=== PATIENT | male | born 1955 | race Caucasian/White ===

== ENCOUNTER → 2025-06-07 | Outpatient (CLI) | payer MEDICARE, SELFPAY ==
--- OUTSIDE RECORDS SUMMARY | 2025-06-07 07:42 | XMS RPT_ITS | CCD ---
Author Organization [facility] Care Team Providers Care Bin Packer Name Role Phone IVAN BROWN DO Primary Care Physician IVAN BROWN DO Attending Unavailable IVAN BROWN DO Primary Care Unavailable ERIC QIU Attending Un available IVAN BROWN DO Primary Care Unavailable NAVYA WOODARD, ERIC Frias Attending Un available IVAN BROWN DO Primary Care Unavailable JOSHUA NICK, DR BELTRAN Attending UnavailIVAN Bertrand DO Primary Care Unavailable TYLER GARCIA DO Attending Unavailable IVAN BROWN DO Primary Care Unavailable IVAN BROWN DO Attending Unavailable IVAN BROWN DO Primary Care Unavailable Unavailable Primary Care Provider UnavailCAS Monsivais Attending Unavailable PIOTR COLEMAN Referring Unavailable TIGIST LOPEZ Referring Unavailable Florence SENIOR STRATEGY MANAGER-Rosie Richmond Primary Care Provider [phone] May SENIOR STRATEGY MANAGERRosie Martin Referring Provider [phone] Karel NICK, Dr. Dykes Attending Provider [phone] FlorenceRosie Primary Care Unavailable Rosie Clark Referring Unavailable Donis Vinson Attending Unavailable Donis Vinson Attending Unavailable Donis Vinson Referring Unavailable Rosie Clark Primary Care Unavailable Medications Current Medications Medication Drug Class(es) Dates Sig (Normalized) Sig (Original) 8 hr acetaminophen 650 mg extended release oral tablet (1 source) Start: 05-31-2023 Tylenol 8 Hour 650 mg oral tablet, extended release Dose : 650 mg = 1 tab(s), Oral, TID, Generic acetaminophen 500-650mg dosing are fine to use. Do not take with alcohol within 24 hour period., # 100 tab(s), 0 Refill(s), Pharmacy: [facility]/pharmacy #[id number], 172, cm, 05/31/23 9:47:00 EDT, Height, kg, 05/31/23 9:47:00 EDT, Dosing Weight Start Date: 05/31/23 Status: Ordered apixaban 5 mg oral tablet (1 source) Factor Xa Inhibitor Start: 05-31-2025 take 1 tablet by mouth twice daily Apixaban (Eliquis) 5 mg tablet Active 5 mg PO TWICE A DAY 60 4 May 31, 2025 12:00am benoxinate hydrochloride 4 mg/ml / fluorescein sodium 3 mg/ml ophthalmic solution (1 source) Diagnostic Dye Start: 07-12-2024 End: 07-12-2024 fluorescein-benoxina te 0.3-0.4 % 1 Drop (FLURESS) cyclobenzaprine hydrochloride 5 mg oral tablet (1 source) Muscle Relaxant Start: 05-31-2023 End: 06-10-2023 cyclobenzaprine 5 mg oral tablet Dose : 5 mg = 1 tab(s), Oral, TID, NOTE!: Only if Skelaxin not covered by insurance!, X 10 day(s), # 30 tab(s), 0 Refill(s), 06/10/23 4:50:00 PM EDT, Pharmacy: [facility]/pharmacy #[id number], 172, cm, 05/31/23 9:47:00 EDT, Height, kg, 05/31/23 9:47:00 EDT, Dosing Weight Start Date: 05/31/23 Stop Date: 06/10/23 Status: Ordered diclofenac sodium 0.01 mg/mg topical gel (1 source) Nonsteroidal Anti-inflammatory Drug Start: 05-31-2023 End: 06-14-2023 diclofenac 1% topical gel Apply 1 jesse, Topical, QID, # 100 gram(s), 0 Refill(s), Pharmacy: [facility]/pharmacy #[id number], Gel, 172, cm, 05/31/23 9:47:00 EDT, Height, 100.6, kg, 05/31/23 9:47:00 EDT, Dosing Weight Start Date: 05/31/23 Stop Date: 06/14/23 Status: Ordered famotidine 40 mg oral tablet (1 source) Histamine-2 Receptor Antagonist Start: 05-20-2025 take 1 tablet by mouth once daily Famotidine 40 mg tablet Active 40 mg PO daily May 20, 2025 12:00am ibuprofen 200 mg oral tablet (1 source) Nonsteroidal Anti-inflammatory Drug Start: 05-31-2023 ibuprofen 200 mg oral tablet Dose : 400 mg = 2 tab(s), Oral, TID, Goal less than 10 days per month use, # 100 tab(s), 0 Refill(s), Pharmacy: [facility]/pharmacy #[id number], 172, cm, 05/31/23 9:47:00 EDT, Height, kg, 05/31/23 9:47:00 EDT, Dosing Weight Start Date: 05/31/23 Status: Ordered metaxalone 800 mg oral tablet (1 source) Start: 05-31-2023 End: 06-10-2023 Skelaxin 800 mg oral tablet Dose : 800 mg = 1 tab(s), Oral, TID, X 10 day(s), # 30 tab(s), 0 Refill(s), 06/10/23 4:50:00 PM EDT, Pharmacy: [facility]/pharmacy #[id number], 172, cm, 05/31/23 9:47:00 EDT, Height, kg, 05/31/23 9:47:00 EDT, Dosing Weight Start Date: 05/31/23 Stop Date: 06/10/23 Status: Ordered 24 hr metoprolol succinate 25 mg extended release oral tablet (1 source) beta-Adrenergic [place] Start: 05-20-2025 take 1 tablet by mouth once daily Metoprolol Succinate 25 mg tablet extended release 24 hr Active 25 mg PO daily May 20, 2025 12:00am Auwbh-0o-Gzl-Epa-Fish Oil-D3 (Fish Oil-Vit D3) 360 mg-1,200 mg -1,000 unit capsule (1 source) Start: 05-20-2025 Naglo-0n-Eqb-Epa-Fis h Oil-D3 (Fish Oil-Vit D3) 360 mg-1,200 mg -1,000 unit capsule Active 1 NMA PO THREE TIMES A DAY May 20, 2025 12:00am Omeprazole 20 mg capsule,delayed release(DR/EC) (1 source) Start: 05-31-2025 take 1 capsule by mouth once daily in the evening Omeprazole 20 mg capsule,delayed release(DR/EC) Active 20 mg PO EVERY EVENING May 31, 2025 12:00am phenylephrine hydrochloride 25 mg/ml ophthalmic solution (2 sources) alpha-1 Adrenergic Agonist Start: 07-12-2024 End: 07-12-2024 PHENYLephrine 2.5 % 1 Drop (AK-DILATE, POWER-SYNEPHRINE) Start: 07-12-2024 End: 07-12-2024 1 Drop, BOTH EYES, DIRECT ED, Starting on Leilani 07/12/24 at 1100, Until Leilani 07/12/24 at 2259, Administer for dilation PROTECT FROM LIGHT proparacaine hydrochloride 5 mg/ml ophthalmic solution (2 sources) Local Anesthetic Start: 07-12-2024 End: 07-12-2024 proparacaine 0.5 % 1 Drop (ALCAINE) Start: 07-12-2024 End: 07-12-2024 1 Drop, BOTH EYES, DIRECT ED, Starting on Leilani 07/12/24 at 1100, Until Leilani 07/12/24 at 2259, Administer for pneumo tonometry, tonopen tonometry, or pachymetry. In the event of a proparacaine shortage, administer tetracaine 0.5% ophthalmic drops 1 drop in both eyes as directed for pneumo tonometry, tonopen tonometry, or pachymetry tropicamide 10 mg/ml ophthalmic solution (2 sources) Anticholinergic Start: 07-12-2024 End: 07-12-2024 tropicamide 1 % 1 Drop (MYDRIACYL) Start: 07-12-2024 End: 07-12-2024 1 Drop, BOTH EYES, DIRECT ED, Starting on Leilani 07/12/24 at 1100, Until Leilani 07/12/24 at 2259, Administer for dilation Completed/Discontinued Medications Medication Drug Class(es) Dates Sig (Normalized) Sig (Original) aspirin 81 mg delayed release oral tablet (1 source) Platelet Aggregation Inhibitor, Nonsteroidal Anti-inflammatory Drug Start: 05-20-2025 End: 05-31-2025 take 1 tablet by mouth once daily Aspirin (Adult Aspirin Regimen) 81 mg tablet,delayed release (DR/EC) Discontinued 81 mg PO daily May 20, 2025 12:00am May 31, 2025 11:06am Problems Problem Classification Problem Date Documented Date Episodic/Chronic Calculus of urinary tract (1 source) Kidney stone; Translations: [Calculus of kidney] 05-20-2025 Episodic Cardiac dysrhythmias (6 sources) Atrial fibrillation; Translations: [Unspecified atrial fibrillation] Onset: 5 05-20-2025 Chronic Cardiac dysrhythmias (1 source) Bradycardia, unspecified; Translations: [Bradycardia, unspecified] Onset: 5 Episodic Cataract (1 source) Artificial lens present; Translations: [Presence of intraocular lens] 07-12-2024 Chronic Coronary atherosclerosis and other heart disease (1 source) Arteriosclerotic vascular disease; Translations: [Atherosclerotic heart disease of [place] coronary artery without angina pectoris] 05-20-2025 Chronic Esophageal disorders (1 source) Gastroesophageal reflux disease; Translations: [Gastro-esophageal reflux disease without esophagitis] 05-20-2025 Chronic Nonspecific chest pain (5 sources) Precordial pain; Translations: [Precordial pain] Onset: 5 03-29-2025 Episodic Other connective tissue disease (1 source) Pain in lower limb; Translations: [Pain in leg, unspecified] Onset: 3 Episodic Other connective tissue disease (2 sources) Pain in right thigh; Translations: [Pain in right thigh] Onset: 3 Episodic Other connective tissue disease (2 sources) Other specified soft tissue disorders; Translations: [Other specified soft tissue disorders] Onset: 3 Episodic Other eye disorders (1 source) Bullous keratopathy, bilateral; 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 keratopathy] 07-12-2024 Chronic Other eye disorders (1 source) Anterior dislocation of lens, left eye; Translations: [Anterior dislocation of lens] 07-12-2024 Chronic Other eye disorders (1 source) Hereditary corneal dystrophy, unspecified; Translations: [Other hereditary corneal dystrophies, bilateral] 07-12-2024 Episodic Other eye disorders (1 source) Monocular esotropia, left eye; Translations: [Monocular esotropia] 07-12-2024 Episodic Other screening for suspected conditions (not mental disorders or infectious disease) (4 sources) Ambulatory ECG abnormal; Translations: [Abnormal electrocardiogram [ECG] [EKG]] Onset: 5 05-20-2025 Episodic Unclassified (4 sources) Pain of knee region 06-15-2022 Results Test Name Value Interpretation Reference Range Facility Cardiology Visit Reporton Cardiology Visit Report [facility] [address] [place], [place] [address] OFFICE VISIT Date of Service: 05/31/25 MR#: [id number] Acct: [id number] Name: ALDA GARCIA Rep #: [id number] : 1955 Provider: Dr. Donis Vinson MD Age/Sex: 69/M [place] [facility] Status: Signed HPI HPI History of Present Illness Details: 69-year-old man with no previous cardiac history who presented to his primary care physician complaining of palpitations. This has been going on for a few months. He says that sometimes is associated with sharp chest discomfort. In February he underwent a stress test where he exercised to 6.2 metabolic equivalents with no EKG changes suggestive of ischemia the peak blood pressure was acceptable at 163/88 mmHg. He went on to have a 12-day Zio patch performed his minimum heart rate was 49 bpm and average heart rate of 72 bpm and a maximum heart rate of 221 bpm which was an episode of atrial fibrillation. He did have 94 beats of supraventricular tachycardia with the longest lasting 15 seconds at an average heart rate of 100 bpm. Isolated premature ventricular and atrial complexes were also noted. Since that time he was put on a beta-richmond with Toprol-XL 25 mg a day which he is tolerating. He still has some shortness of breath with activity. His lipid profile had demonstrated total cholesterol 202 HDL 49 LDL 129. His physical exam here is unremarkable his electrocardiogram demonstrates sinus bradycardia with a rate of 53 bpm and poor R wave progression. He is quite vague about the chest discomfort though he says that the palpitations generally wake him up at night. Intake Vital Signs 05/31/25 10:42 Height 5 ft 8 in Weight: 216 lb BMI 32.8 BP 105/78 Blood Pressure Location Lt brachial Position Sitting Respiration 16 Pulse 54 L Pulse Source Monitor Intake Visit Reasons: ABN HOLTER (FEBRUARY) Home Health Rn Required: No Accompanied by: Significant Other Is patient in pain?: No Allergies No Known Allergies Allergy (Unverified 05/31/25 10:40) Medications ???Medication ???Instructions ???Recorded ???Confirmed ???Type famotidine 40 mg tablet 40 mg PO QDAY 05/20/25 05/31/25 Hi story metoprolol succinate 25 mg 25 mg PO QDAY 05/20/25 05/31/25 Hi story tablet,extended release 24 hr omega-3s 360 cy-jcx-nzr-fish oil 1 cap PO TID 05/20/25 05/31/25 His tory 1,200 mg-D3 1,000 unit capsule (Fish Oil-Vit D3) apixaban 5 mg tablet (Eliquis) 5 mg PO BID #60 tabs 05/31/2511/24 Rx omeprazole 20 mg capsule,delayed 20 mg PO QPM 05/31/25 05/31/25 His tory release Have you fallen in the past year?: No PFSH Medical History PVC (premature ventricular contraction) Renal calculi ASCVD (arteriosclerotic cardiovascular disease) GERD (gastroesophageal reflux disease) Abnormal stress test Atrial fibrillation Abnormal Holter monitor finding Surgical History History of intraocular lens implant Family History Father Diabetes Mother Thyroid disorder Social History Smoking Status: Former smoker alcohol intake: never substance use type: does not use ROS Const Const: Positive for fatigue, weakness and difficulty sleeping; Negative for headache(s) or daytime sleepiness ENT ENT: Positive for dizziness; Negative for headache(s) or Nosebleed/epistaxis Cardio Chest Pain: Yes Frequency: other (mostly at night) Character: other (racing HR) Onset: at rest Location: left chest Duration: continuous Exacerbation: rest Recurrence: rest Palpitations: Yes feels like its: fast Edema: None Resp Respiratory: Positive for SOB with activity; Negative for SOB at rest, SOB orthopnea SOB lying down or Cough GI GI: Positive for nausea and heartburn; Negative vomiting Neuro Neuro: Positive for dizziness, near syncope and weakness; Negative for lightheadedness or headache(s) Endo Endo: Positive for fatigue Cardiology Exam Const Appearance: cooperative, healthy appearing, no acute distress, well developed and well groomed Nutritional Appearance: average body habitus and well nourished Orientation: alert, awake and oriented x3 Head Head: normal to inspection, normocephalic and atraumatic Ears: hearing grossly normal bilaterally and external ears normal Nose: external nose normal, nares normal, nasal mucous membranes and turbinates normal, septum normal and no nasal discharge Face and Sinus: face symmetric Mouth: oral mucosae normal, tongue normal, oropharynx normal and moist mucous membranes Teeth and gingiva: dentition normal Throat: posterior oropharynx normal, tons (more content not included)... Normal [facility] 04-29-2025 [facility] Telephone (CARMOB) DAVID GARCIA ([id number]) 1955 M Date Time Provider Department 04/29/25 ARTURO MORENO During your visit today, we recorded the following information about you: Arturo Moreno, RN 04/29/2025 3:20 PM Signed Referral from [facility] for bradycardia and pvc's. Please call to schedule. Thanks Brittany Dickerson 04/30/2025 9:31 AM Signed Scheduled and confirmed appt with patient Brittany Yue Howe 05/15/2025 9:19 AM Signed Patient called to cancel 11/05/[address] Rodrigues. Patient states he is scheduled with another rehabilitation services counselor sooner. Allergies As of Date: 04/29/2025 (Not on File) Date Reviewed: 07/12/2024 Reviewed by: Celia cMguire OA - Fully Assessed Reason for Visit: Appointment [[id number]] Cmt: Cancel Problem List As Of Date: 04/29/2025 (None) Encounter Status:Closed by BRITTANY DICKERSON on 04/30/25 [facility] EXERCISE STRESS ECG (WITHOUT IMAGING)on 03-29-2025 EXERCISE STRESS ECG (WITHOUT IMAGING) Stress Volunteer Recruiter Report: Exercise Stress ECG (without Imaging) [facility] Date of service: 03/29/2025 1:58:08 PM Supervising physician: John Rodrigues MD PATIENT: Name: MR. DAVID GARCIA Age: 69 years Gender: M The supervising physician was in the department and immediately available. Final Stress ECG Report: Exercise Stress ECG (without Imaging) [facility] Date of service: 03/29/2025 1:58:08 PM Ordering physician: TIGIST LOPEZ dermatology specialist: Jessica Leahy Interpreting physician: John Rodrigues MD Patient name: MR. DAVID GARCIA Age: 69 years Gender: M Height: 175.26 cm BSA: 2.20 m Weight: 99.79 kg BMI: 32.5 kg/m Indication: Precordial chest pain Stress ECG Conclusion: Conclusion: Normal with exception due to arrhythmia Stress ECG Summary: The patient's resting heart rate was 54 bpm and blood pressure was 142/76 mmHg. The patient exercised according to the Justin protocol. The estimated end-exercise MET level achieved using the FRIEND equation was 6.2, which is within the 10th to 25th percentile for age and sex. The estimated end-exercise MET level achieved using the previous ACSM equation was 7.0. The test was terminated due to general fatigue and the total exercise time was 6 minutes and 9 seconds. Other symptoms during the test included SOB. The maximum heart rate was 130 bpm, which is 85% of the predicted heart rate for age. This is an adequate heart rate response. Peak blood pressure was 163/88 mmHg. The double product achieved was [address]. Medications: Last Used OMEPRAZOLE Resting ECG: Sinus Bradycardia Symptoms at rest: No symptoms Exercise Protocol: Justin Stress Exercise Table: +-----+ +- -------+ +- --+---+---+----+ Stage Speed (MPH) Grade(%) Time (min) HR SYS KINGSLEY METS +-----+ +- -------+ +- --+---+---+----+ 1 1.7 10.0 3.0 111 140 80 4.2 +-----+ +- -------+ +- --+---+---+----+ 2 2.5 12.0 6.0 123 160 80 6.1 +-----+ +- -------+ +- --+---+---+----+ +-----+ +- --------+ + ---+---+---+----+ Speed (MPH) Grade (%) Time (min) HR SYS KINGSLEY METS +-----+ +- --------+ + ---+---+---+----+ Final 2.5 12.0 6.15 130 163 88 6.2 +-----+ +- --------+ + ---+---+---+----+ Recovery Table: +------+ + --------+ + --+---+---+----+ Stage Speed (MPH) Grade(%) Time (min) HR SYS KINGSLEY MET S +------+ + --------+ + --+---+---+----+ 1 1.5 0.0 0.3 93 158 80 2.1 +------+ + --------+ + --+---+---+----+ 2 0.0 0.0 3.0 77 163 88 1.0 +------+ + --------+ + --+---+---+----+ 3 0.0 0.0 4.0 77 158 85 1.0 +------+ + --------+ + --+---+---+----+ Stress Observations: Resting HR: 54 bpm Peak HR: 130 bpm (85% MPHR) Resting BP: 142 / 76 mmHg Peak BP: 163 / 88 mmHg Total exercise time: 6 minutes 9 seconds METS achieved: 6.2 Chronotropic response index (CRI): 0.77 Heart rate recovery (HRR): 53 bpm Rate Pressure Product (RPP): 91037 Stress Exercise Observations: Reason for test termination: general fatigue, Symptoms during test: Other symptoms during the test included SOB, Heart rate response: Adequate heart rate response, Blood pressure response: Normal BP response, ST segment and T wave changes: No ST changes, Yanes Treadmill Score: Normal Yanes Treadmill Score (>=5) and Arrhythmias: Unifocal PVCs and Isolated ventricular couplet(s) / triplet(s) with stress Comments: Frequent PVCs with ventricular bigeminy at peak stress Metabolic Exercise Data Variable: Observed value [Expected Range] HGI: 1.8 [>1.06 bpm/mmHg] IMPORTANT NOTE REGARDING ESTIMATED MET VALUES: Effective 08/17/2020, the reference equation for determining estimated MET values for [facility] stress tests changed. Comparison of test results before and after that date may show a change in estimated MET values for peak/max exercise despite a test duration that is similar in length. The validity of the new FRIEND equation for exercise METS is endorsed by the [place] [employer]. Peyton P, Marshall LA, Annette R, aKyden J, Serjio J. New Generalized Equation for Predicting Maximal Oxygen Uptake (from the Fitness Registry and the Importance of Exercise National Database). The [place] [employer] Journal of Cardiology. 2017;120(4):688-692) . Final CC [employer] Image : [id number] oDynamicsSISUID See Link below for Image Normal [facility] No Panel Informationon 03-29 Stress Volunteer Recruiter Report: Exercise Stress ECG (without Imaging) [facility] Date of service: 03/29/2025 1:58:08 PM Supervising physician: John Rodrigues MD PATIENT: Name: MR. DAVID GARCIA Age: 69 years Gender: M The supervising physician was in the department and immediately available. Final Stress ECG Report: Exercise Stress ECG (without Imaging) [facility] Date of service: 03/29/2025 1:58:08 PM Ordering physician: TIGIST LOPEZ dermatology specialist: Jessica Leahy Interpreting physician: John Rodrigues MD Patient name: MR. DAVID GARCIA Age: 69 years Gender: M Height: 175.26 cm BSA: 2.20 m Weight: 99.79 kg BMI: 32.5 kg/m Indication: Precordial chest pain Stress ECG Conclusion: Conclusion: Normal with exception due to arrhythmia Stress ECG Summary: The patient's resting heart rate was 54 bpm and blood pressure was 142/76 mmHg. The patient exercised according to the Justin protocol. The estimated end-exercise MET level achieved using the FRIEND equation was 6.2, which is within the 10th to 25th percentile for age and sex. The estimated end-exercise MET level achieved using the previous ACSM equation was 7.0. The test was terminated due to general fatigue and the total exercise time was 6 minutes and 9 seconds. Other symptoms during the test included SOB. The maximum heart rate was 130 bpm, which is 85% of the predicted heart rate for age. This is an adequate heart rate response. Peak blood pressure was 163/88 mmHg. The double product achieved was [address]. Medications: Last Used OMEPRAZOLE Resting ECG: Sinus Bradycardia Symptoms at rest: No symptoms Exercise Protocol: Jusitn Stress Exercise Table: +-----+ +- -------+ +- --+---+---+----+ Stage Speed (MPH) Grade(%) Time (min) HR SYS KINGSLEY METS +-----+ +- -------+ +- --+---+---+----+ 1 1.7 10.0 3.0 111 140 80 4.2 +-----+ +- -------+ +- --+---+---+----+ 2 2.5 12.0 6.0 123 160 80 6.1 +-----+ +- -------+ +- --+---+---+----+ +-----+ +- --------+ + ---+---+---+----+ Speed (MPH) Grade (%) Time (min) HR SYS KINGSLEY METS +-----+ +- --------+ + ---+---+---+----+ Final 2.5 12.0 6.15 130 163 88 6.2 +-----+ +- --------+ + ---+---+---+----+ Recovery Table: +------+ + --------+ + --+---+---+----+ Stage Speed (MPH) Grade(%) Time (min) HR SYS KINGSLEY MET S +------+ + --------+ + --+---+---+----+ 1 1.5 0.0 0.3 93 158 80 2.1 +------+ + --------+ + --+---+---+----+ 2 0.0 0.0 3.0 77 163 88 1.0 +------+ + --------+ + --+---+---+----+ 3 0.0 0.0 4.0 77 158 85 1.0 +------+ + --------+ + --+---+---+----+ Stress Observations: Resting HR: 54 bpm Peak HR: 130 bpm (85% MPHR) Resting BP: 142 / 76 mmHg Peak BP: 163 / 88 mmHg Total exercise time: 6 minutes 9 seconds METS achieved: 6.2 Chronotropic response index (CRI): 0.77 Heart rate recovery (HRR): 53 bpm Rate Pressure Product (RPP): 11658 Stress Exercise Observations: Reason for test termination: general fatigue, Symptoms during test: Other symptoms during the test included SOB, Heart rate response: Adequate heart rate response, Blood pressure response: Normal BP response, ST segment and T wave changes: No ST changes, Yanes Treadmill Score: Normal Yanes Treadmill Score (>=5) and Arrhythmias: Unifocal PVCs and Isolated ventricular couplet(s) / triplet(s) with stress Comments: Frequent PVCs with ventricular bigeminy at peak stress Metabolic Exercise Data Variable: Observed value [Expected Range] HGI: 1.8 [>1.06 bpm/mmHg] IMPORTANT NOTE REGARDING ESTIMATED MET VALUES: Effective 08/17/2020, the reference equation for determining estimated MET values for [facility] stress tests changed. Comparison of test results before and after that date may show a change in estimated MET values for peak/max exercise despite a test duration that is similar in length. The validity of the new FRIEND equation for exercise METS is endorsed by the [place] [employer]. ePyton P, Marshall LA, Annette R, Kayden J, Serjio J. New Generalized Equation for Predicting Maximal Oxygen Uptake (from the Fitness Registry and the Importance of Exercise National Database). The [place] [employer] Journal of Cardiology. 2017;120(4):688-692) . Final See (more content not included)... [facility] CBC (INCLUDES DIFF/PLT)on Basophils (Bld) [#/Vol] 0.043 10*3/uL Normal 0-200 [facility] Comment on above: Performed By: #### [id number], [id number], [id number] #### [facility] of [address], [address] [place] [address] Rotary Surface Grinder: Joshua Acuña MD Basophils/100 WBC (Bld) 0.7 % Normal [facility] Comment on above: Performed By: #### 7 [id number], [id number], [id number] #### [facility] of [address], [address] [place] [address] Rotary Surface Grinder: Joshua Acuña MD Eosinophils (Bld) [#/Vol] 0.122 10*3/uL Normal 15-500 [facility] Comment on above: Performed By: #### 7 600, [id number], [id number] #### [facility] of [address], [address] [place] [address] Rotary Surface Grinder: Joshua Acuña MD Eosinophils/100 WBC (Bld) 2.0 % Normal [facility] Comment on above: Performed By: #### 7 600, , [id number] #### [facility] of [place] [address] Rotary Surface Grinder: Joshua Acuña MD Erythrocyte distribution width (RBC) [Ratio] 13.3 % Normal 11.0-15.0 [facility] Comment on above: Performed By: #### 7 600, [id number], [id number] #### [facility] of [place] [address] Rotary Surface Grinder: Joshua Acuña MD Hematocrit (Bld) [Volume fraction] 46.1 % Normal 38.5-50.0 [facility] Comment on above: Performed By: #### 7 600, 77890, 6399 #### [facility] of [place] [address] [employer]ary Surface Grinder: Joshua Acuña MD Hemoglobin (Bld) [Mass/Vol] 15.6 g/dL Normal 13.2-17.1 [facility] Comment on above: Performed By: #### 7 600, 82876, 6399 #### [facility] of [place] [address] Rotary Surface Grinder: Joshua Acuña MD Lymphocytes (Bld) [#/Vol] 1.714 10*3/uL Normal 850-3900 [facility] Comment on above: Performed By: #### 7 600, 29794, 6399 #### [facility] [place] [address] Rotary Surface Grinder: Joshua Acuña MD Lymphocytes/100 WBC (Bld) 28.1 % Normal [facility] Comment on above: Performed By: #### 7 600, , 6399 #### [facility] [place] [address] Rotary Surface Grinder: [place] Acuña MD MCH (RBC) [Entitic mass] 32.0 pg Normal 27.0-33.0 [facility] Comment on above: Performed By: #### 7 600, , 6398 #### [facility] [place] [address] Rotary Surface Grinder: Joshua Acuña MD MCHC (RBC) [Mass/Vol] 33.8 g/dL Normal 32.0-36.[address] [facility] Comment on above: Result Comment: For adults, a slight decrease in the calculated MCHC value (in the range of 30 to 32 g/dL) is most likely not clinically significant; however, it should be interpreted with caution in correlation with other red cell parameters and the patient's clinical condition. Performed By: #### 7 600, 21426, 29 #### [facility] [place] [address] Rotary Surface Grinder: [place] Acuña MD MCV (RBC) [Entitic vol] 94.7 fL Normal 80.0-100.0 [facility] Comment on above: Performed By: #### 7 600, 88150, 6399 #### [facility] [place] [address] Rotary Surface Grinder: [place] Acuña MD Monocytes (Bld) [#/Vol] 0.598 10*3/uL Normal 200-950 [facility] Comment on above: Performed By: #### 7 600, 77011, 6399 #### [facility] of [address], [address] [place] [address] Rotary Surface Grinder: [place] Acuña MD Monocytes/100 WBC (Bld) 9.8 % Normal [facility] Comment on above: Performed By: #### 7 600, 74954, 6399 #### [facility] of [address], [address] [place] [address] Rotary Surface Grinder: [place] Acuña MD Neutrophils (Bld) [#/Vol] 3.623 10*3/uL Normal 3433-0088 [facility] Comment on above: Performed By: #### 7 600, 17267, 6399 #### [facility] of [address], [address] [place] [address] Rotary Surface Grinder: [place] Acuña MD Neutrophils/100 WBC (Bld) 59.4 % Normal [facility] Comment on above: Performed By: #### 7 600, 69051, 6399 #### [facility] of [address], [address] [place] [address] Rotary Surface Grinder: [place] Acuña MD Platelet mean volume (Bld) [Entitic vol] 10.8 fL Normal 7.5-12.5 [facility] Comment on above: Performed By: #### 7 600, 05997, 6399 #### [facility] [place] [address] Rotary Surface Grinder: [place] Acuña MD Platelets (Bld) [#/Vol] 282 10*3/uL Normal 140-400 [facility] Comment on above: Performed By: #### 7 600, 71114, 6399 #### [facility] of [address], [address] [place] [address] Rotary Surface Grinder: [place] Acuña MD RBC (Bld) [#/Vol] 4.87 10*6/uL Normal 4.20-5.80 [facility] Comment on above: Performed By: #### 7 600, 58814, 6399 #### [facility] of [address], [address] [place] [address] Rotary Surface Grinder: [place] Acuña MD WBC (Bld) [#/Vol] 6.1 10*3/uL Normal 3.8-10.8 [facility] Comment on above: Performed By: #### 7 600, 93934, 6399 #### [facility] [place] [address] Rotary Surface Grinder: [place] Acuña MD COMPREHENSIVE METABOLIC PANE [facility] 01-26-2025 Albumin [Mass/Vol] 4.5 g/dL Normal 3.6-5.1 [facility] Comment on above: Performed By: #### 7 600, 91322, 6399 #### [facility] [place] [address] Rotary Surface Grinder: [place] Acuña MD Albumin/Globulin [Mass ratio] 1.9 {ratio} Normal 1.0-2.5 [facility] Comment on above: Performed By: #### 7 600, 21432, 6399 #### [facility] [place] [address] Rotary Surface Grinder: [place] Acuña MD ALP [Catalytic activity/Vol] 76 U/L Normal 35-144 [facility] Comment on above: Performed By: #### 7 600, 09578, 6399 #### [facility] [place] [address] Rotary Surface Grinder: [place] Acuña MD ALT [Catalytic activity/Vol] 35 U/L Normal 9-46 [facility] Comment on above: Performed By: #### 7 600, 82570, 6399 #### [facility] [place] [address] Rotary Surface Grinder: [place] Acuña MD AST [Catalytic activity/Vol] 21 U/L Normal 10-35 [facility] Comment on above: Performed By: #### 7 600, 21747, 6399 #### [facility] [place] [address] Rotary Surface Grinder: [place] Acuña MD Bilirubin [Mass/Vol] 0.7 mg/dL Normal 0.2-1.[address] [facility] Comment on above: Performed By: #### 7 600, 86972, 6399 #### [facility] [place] [address] Rotary Surface Grinder: [place] Acuña MD BUN/CREATININE RATIO SEE NOTE: Normal 6-22 [facility] Comment on above: Result Comment: Not Reported: BUN and Creatinine are within reference range. Performed By: #### 7 600, 26048, 6399 #### [facility] of [address], [address] [place] [address] Rotary Surface Grinder: [place] Acuña MD Calcium [Mass/Vol] 9.1 mg/dL Normal 8.6-10.3 [facility] Comment on above: Performed By: #### 7 600, 17339, 6399 #### [facility] [place] [address] Rotary Surface Grinder: [place] Acuña MD Chloride [Moles/Vol] 102 mmol/L Normal 98-110 [facility] Comment on above: Performed By: #### 7 600, 54609, 6399 #### [facility] [place] [address] Rotary Surface Grinder: [place] Acuña MD CO2 [Moles/Vol] 29 mmol/L Normal 20-32 [facility] Comment on above: Performed By: #### 7 600, 42517, 6399 #### [facility] [place] [address] Rotary Surface Grinder: [place] Acuña MD Creatinine [Mass/Vol] 0.99 mg/dL Normal 0.70-1.[address] [facility] Comment on above: Performed By: #### 7 600, 00223, 6399 #### [facility] [place] [address] Rotary Surface Grinder: [place] Acuña MD GFR/1.73 sq M.predicted among non-blacks MDRD (S/P/Bld) [Vol rate/Area] 83 mL/min/{1.73_m2} Normal > OR = 60 [facility] Comment on above: Performed By: #### 7 600, 21371, 6399 #### [facility] [place] [address] Rotary Surface Grinder: [place] Acuña MD Globulin (S) [Mass/Vol] 2.4 g/dL Normal 1.9-3.7 [facility] Comment on above: Performed By: #### 7 600, 19189, 6399 #### [facility] [place] [address] Rotary Surface Grinder: [place] Acuña MD Glucose [Mass/Vol] 104 mg/dL High 65-99 [facility] Comment on above: Result Comment: Fasting reference interval For someone without known diabetes, a glucose value between 100 and 125 mg/dL is consistent with prediabetes and should be confirmed with a follow-up test. Performed By: #### 7 600, 99875, 6399 #### [facility] [place] [address] Rotary Surface Grinder: [place] Acuña MD Potassium [Moles/Vol] 4.4 mmol/L Normal 3.5-5.[address] [facility] Comment on above: Performed By: #### 7 600, 88166, 6399 #### [facility] [place] [address] Rotary Surface Grinder: [place] Acuña MD Protein [Mass/Vol] 6.9 g/dL Normal 6.1-8.1 [facility] Comment on above: Performed By: #### 7 600, 09441, 6399 #### [facility] [place] [address] Rotary Surface Grinder: [place] Acuña MD Sodium [Moles/Vol] 139 mmol/L Normal 135-146 [facility] Comment on above: Performed By: #### 7 600, 74222, 6399 #### [facility] [place] [address] Rotary Surface Grinder: [place] Acuña MD Urea nitrogen [Mass/Vol] 17 mg/dL Normal 7-25 [facility] Comment on above: Performed By: #### 7 600, 32116, 6399 #### [facility] [address], [address] [place] [address] Rotary Surface Grinder: [place] Acuña MD LIPID PANEL, [facility] 12-30 Cholesterol [Mass/Vol] 202 mg/dL High <200 [facility] Comment on above: Order Comment: 0; 0; 0; 0 Performed By: #### 7 600, 72467, 6399 #### [facility] [address], [address] [place] [address] Rotary Surface Grinder: [place] Acuña MD Cholesterol in HDL [Mass/Vol] 49 mg/dL Normal > OR = 40 [facility] Comment on above: Order Comment: 0; 0; 0; 0 Performed By: #### 7 600, 36756, 6399 #### [facility] [address], [address] [place] [address] Rotary Surface Grinder: [place] Acuña MD Cholesterol in LDL [Mass/Vol] 129 mg/dL High [facility] Comment on above: Order Comment: 0; 0; 0; 0 Result Comment: Refe rence range: <100 Desirable range <100 mg/dL for primary prevention; <70 mg/dL for patients with CHD or diabetic patients with > or = 2 CHD risk factors. LDL-C is now calculated using the Floyd-Lorie calculation, which is a validated novel method providing better accuracy than the Friedewald equation in the estimation of LDL-C. Floyd SONG et al. RAHAT. 2013;310(19): 1225-0907 (http://education.Tekmi.Missingames/faq/XRV904) Performed By: #### 7 600, 72589, 6399 #### [facility] [place] [address] Rotary Surface Grinder: [place] Acuña MD Cholesterol.total/Cho lesterol in HDL [Mass ratio] 4.1 {ratio} Normal <5.0 [facility] Comment on above: Order Comment: 0; 0; 0; 0 Performed By: #### 7 600, 15911, 6399 #### [facility] [address], [address] [place] [address] Rotary Surface Grinder: [place] Acuña MD NON HDL CHOLESTEROL 153 mg/dL (calc) High <130 [facility] Comment on above: Order Comment: 0; 0; 0; 0 Result Comment: For patients with diabetes plus 1 major ASCVD risk factor, treating to a non-HDL-C goal of <100 mg/dL (LDL-C of <70 mg/dL) is considered a therapeutic option. Performed By: #### 7 600, 81886, 6399 #### [facility] [address], [address] [place] [address] Rotary Surface Grinder: [place] Acuña MD Triglyceride [Mass/Vol] 128 mg/dL Normal <150 [facility] Comment on above: Order Comment: 0; 0; 0; 0 Performed By: #### 7 600, 35011, 6399 #### [facility] [address], [address] [place] [address] Rotary Surface Grinder: [place] Acuña MD PSA, TOTALon 01-26-2025 PSA, TOTAL 0.17 ng/mL Normal < OR = 4.00 [facility] Comment on above: Result Comment: The total PSA value from this assay system is standardized against the WHO standard. The test result will be approximately 20% lower when compared to the equimolar-standardized total PSA (Emir Ani). Comparison of serial PSA results should be interpreted with this fact in mind. This test was performed using the Siemens chemiluminescent method. Values obtained from different assay methods cannot be used interchangeably. PSA levels, regardless of value, should not be interpreted as absolute evidence of the presence or absence of disease. Performed By: #### 7 600, 73425, 6399 #### [facility] [address], [address] [place] [address] Rotary Surface Grinder: [place] Acuña MD CORNEAL TOPOGRAPHY PENTACAM OU (BOTH EYES)on 07-12-2024 [facility] Radiology Study observation (narrative) [facility] OCT ANTERIOR SEGMENT CIRRUS OU (BOTH EYES)on 07-12-2024 [facility] Radiology Study observation (narrative) [facility] [id number] 06-04-2023 Vitamin B6 Lvl 81.2 nmol/L Normal 20.0-125.0 [facility] ([place]) Comment on above: Result Comment: INTE RPRETIVE INFORMATION: Vitamin B6 (Pyridoxal 5-Phosphate) Pyridoxal 5'-phosphate measured in a specimen collected following an 8-hour or overnight fast accurately indicates vitamin B6 nutritional status. Non-fasting specimen concentration reflects recent vitamin intake. This test was developed and its performance characteristics determined by [facility]. It has not been cleared or approved by the [place] Food and Drug Administration. This test was performed in a CLIA certified laboratory and is intended for clinical purposes. Performed By: [facility] [address] [place] [id number] Gun Numberer: Javier Hull MD, PhD CLIA Number: [id number] Performed By: #### C KMBM, CKMB #### [place] [address] #### CMP, GFR #### [address] [address] .Auto Diffon 05-31-2023 Basophil, Absolute 0.0 10 3/mcL Normal 0.0-0.2 [facility] ([place]) Comment on above: Performed By: #### C KMBM, CKMB #### [place] [address] #### CMP, GFR #### [address] [address] Basophils/100 WBC (Bld) 0.4 % Normal 0.0-2.5 [facility] ([place]) Comment on above: Performed By: #### C KMBM, CKMB #### [place] [address] #### CMP, GFR #### [address] [address] Eosinophil, Absolute 0.1 10 3/mcL Normal 0.0-0.4 [facility] ([place] Comment on above: Performed By: #### C KMBM, CKMB #### [place] [address] #### CMP, GFR #### [address] [address] Eosinophils/100 WBC (Bld) 1.8 % Normal 0.0-7.0 [facility] ([place]) Comment on above: Performed By: #### C KMBM, CKMB #### [address] [address] #### CMP, GFR #### [address] [address] Lymphocyte, Absolute 1.3 10 3/mcL Normal 0.8-3.9 [facility] ([place] Comment on above: Performed By: #### C KMBM, CKMB #### [place] [address] #### CMP, GFR #### [address] [address] Lymphocytes/100 WBC (Bld) 21.3 % Normal 10.0-50.0 [facility] ([place] Comment on above: Performed By: #### C KMBM, CKMB #### [address] [address] #### CMP, GFR #### [address] [address] Monocyte, Absolute 0.5 10 3/mcL Normal 0.2-1.0 [facility] ([place]) Comment on above: Performed By: #### C KMBM, CKMB #### [place] [address] #### CMP, GFR #### [address] [address] Monocytes/100 WBC (Bld) 8.2 % Normal 1.7-13.0 [facility] ([place] Comment on above: Performed By: #### C KMBM, CKMB #### [address] [address] #### CMP, GFR #### [address] [address] Neutrophils/100 WBC (Bld) 68.3 % Normal 37.0-80.0 [facility] ([place]) Comment on above: Performed By: #### C KMBM, CKMB #### [address] [address] #### CMP, GFR #### [place] [address] [place], [place] [address] .GFRon 05-31-2023 GFR Non- 60 ml/min/1.73sqm Normal [facility] ([place]) Comment on above: Result Comment: GFR Population mean for , Non- Americans Ages 20-29 = 116 mL/min/1.73 sq.m. Ages 30-39 = 107 mL/min/1.73 sq.m. Ages 40-49 = 99 mL/min/1.73 sq.m. Ages 50-59 = 93 mL/min/1.73 sq.m. Ages 60-69 = 85 mL/min/1.73 sq.m. Ages 70+ = 75 mL/min/1.73 sq.m. Chronic Kidney Disease: Less than 60 mL/min/1.73 square meters End Stage Renal Disease: Less than 15 mL/min/1.73 square meters Performed By: #### C KMBM, CKMB #### [address] [address] #### CMP, GFR #### [place] [address] [place], [place] [address] GFR 73 ml/min/1.73sqm Normal [facility] ([place]) Comment on above: Result Comment: GFR Population mean for , Non- Americans Ages 20-29 = 116 mL/min/1.73 sq.m. Ages 30-39 = 107 mL/min/1.73 sq.m. Ages 40-49 = 99 mL/min/1.73 sq.m. Ages 50-59 = 93 mL/min/1.73 sq.m. Ages 60-69 = 85 mL/min/1.73 sq.m. Ages 70+ = 75 mL/min/1.73 sq.m. Chronic Kidney Disease: Less than 60 mL/min/1.73 square meters End Stage Renal Disease: Less than 15 mL/min/1.73 square meters Performed By: #### C KMBM, CKMB #### [address] [address] #### CMP, GFR #### [address] [address] GFR 78 ml/min/1.73sqm Normal [facility] ([place]) Comment on above: Result Comment: GFR Population mean for , Non- Americans Ages 20-29 = 116 mL/min/1.73 sq.m. Ages 30-39 = 107 mL/min/1.73 sq.m. Ages 40-49 = 99 mL/min/1.73 sq.m. Ages 50-59 = 93 mL/min/1.73 sq.m. Ages 60-69 = 85 mL/min/1.73 sq.m. Ages 70+ = 75 mL/min/1.73 sq.m. Chronic Kidney Disease: Less than 60 mL/min/1.73 square meters End Stage Renal Disease: Less than 15 mL/min/1.73 square meters Performed By: #### C KMBM, CKMB #### [address] [address] #### CMP, GFR #### [address] [address] GFR Non- 64 ml/min/1.73sqm Normal [facility] ([place]) Comment on above: Result Comment: GFR Population mean for , Non- Americans Ages 20-29 = 116 mL/min/1.73 sq.m. Ages 30-39 = 107 mL/min/1.73 sq.m. Ages 40-49 = 99 mL/min/1.73 sq.m. Ages 50-59 = 93 mL/min/1.73 sq.m. Ages 60-69 = 85 mL/min/1.73 sq.m. Ages 70+ = 75 mL/min/1.73 sq.m. Chronic Kidney Disease: Less than 60 mL/min/1.73 square meters End Stage Renal Disease: Less than 15 mL/min/1.73 square meters Performed By: #### C KMBM, CKMB #### [address] [address] #### CMP, GFR #### [address] [address] .NEUABSon 05-31-2023 Neutrophil, Absolute 4.1 10 3/mcL Normal 2.9-6.2 [facility] [place] Comment on above: Performed By: #### C KMBM, CKMB #### [address] [address] #### CMP, GFR #### [address] [address] A1Con 05-31-2023 HbA1c (Bld) [Mass fraction] 5.5 % Normal 4.3-6.4 [facility] ([place]) Comment on above: Performed By: #### C KMBM, CKMB #### [place] [address] #### CMP, GFR #### [address] [address] B12on 05-31-2023 Cobalamin (Vitamin B12) [Mass/Vol] 452 pg/mL Normal 211-911 [facility] ([place]) Comment on above: Performed By: #### C KMBM, CKMB #### [place] [address] #### CMP, GFR #### [address] [address] CBCon 05-31-2023 Erythrocyte distribution width (RBC) [Ratio] 14.0 % Normal 11.5-14.5 [facility] ([place]) Comment on above: Performed By: #### C KMBM, CKMB #### [place] [address] #### CMP, GFR #### [address] [address] Hematocrit (Bld) [Volume fraction] 45.7 % Normal 42.0-52.0 [facility] ([place]) Comment on above: Performed By: #### C KMBM, CKMB #### [place] [address] #### CMP, GFR #### [address] [address] Hgb 15.5 G/dL Normal 14.0-18.0 [facility] ([place]) Comment on above: Performed By: #### C KMBM, CKMB #### [place] [address] #### CMP, GFR #### [address] [address] MCH (RBC) [Entitic mass] 30.8 pg Normal 27.0-31.2 [facility] ([place]) Comment on above: Performed By: #### C KMBM, CKMB #### [place] [address] #### CMP, GFR #### [place] [address] MCHC 34.0 G/dL Normal 31.8-35.4 [facility] ([place] Comment on above: Performed By: #### C GUANAKITOBM, CKMB #### [place] [address] #### CMP, GFR #### [address] [address] MCV (RBC) [Entitic vol] 90.7 fL Normal 80.0-94.0 [facility] ([place]) Comment on above: Performed By: #### C KMBM, CKMB #### [place] [address] #### CMP, GFR #### [address] [address] Platelet 284 10 3/mcL Normal 130-400 [facility] ([place]) Comment on above: Performed By: #### C KMBM, CKMB #### [place] [address] #### CMP, GFR #### [address] [address] Platelet mean volume (Bld) [Entitic vol] 8.7 fL Normal 7.4-10.4 [facility] ([place]) Comment on above: Performed By: #### C KMBM, CKMB #### [place] [address] #### CMP, GFR #### [address] [address] RBC 5.04 10 6/mcL Normal 4.04-6.13 [facility] ([place]) Comment on above: Performed By: #### C KMBM, CKMB #### [place] [address] #### CMP, GFR #### [address] [address] WBC 6.0 10 3/mcL Normal 4.6-10.8 [facility] ([place]) Comment on above: Performed By: #### C KMBM, CKMB #### [place] [address] #### CMP, GFR #### [address] [address] CK-Yesy 05-31-2023 Relative Index Not Valid Normal 0.0-4.5 [facility] ([place]) Comment on above: Result Comment: CPK <185 invalidates relative index Performed By: #### C KMBM, CKMB #### [place] [address] #### CMP, GFR #### [address] [address] CK [Catalytic activity/Vol] 62 U/L Normal 7-185 [facility] ([place]) Comment on above: Performed By: #### C KMBM, CKMB #### [place] [address] #### CMP, GFR #### [place] [address] CKMBMon 05-31-2023 CK.MB [Mass/Vol] Not performed Normal 0.00-5.00 [facility] ([place]) Comment on above: Result Comment: CKMB result not performed when CPK < 75 Note - New Reference Range in effect 20 Performed By: #### C KMBM, CKMB #### [place] [address] #### CMP, GFR #### [address] [address] CMPon 05-31-2023 Albumin Level 3.9 G/dL Normal 3.4-4.8 [facility] ([place]) Comment on above: Performed By: #### C KMBM, CKMB #### [place] [address] #### CMP, GFR #### [address] [address] Albumin/Globulin [Mass ratio] 1.1 {ratio} Normal 1.1-2.5 [facility] ([place]) Comment on above: Performed By: #### C KMBM, CKMB #### [place] [address] #### CMP, GFR #### [address] [address] ALP [Catalytic activity/Vol] 89 U/L Normal 40-135 [facility] ([place]) Comment on above: Performed By: #### C KMBM, CKMB #### [place] [address] #### CMP, GFR #### [address] [address] ALT [Catalytic activity/Vol] 47 U/L Normal 16-63 [facility] ([place]) Comment on above: Performed By: #### C KMBM, CKMB #### [place] [address] #### CMP, GFR #### [address] [address] AST [Catalytic activity/Vol] 20 U/L Normal 10-40 [facility] ([place]) Comment on above: Performed By: #### C KMBM, CKMB #### [place] [address] #### CMP, GFR #### [address] [address] Bili Total 0.6 mg/dL Normal 0.2-1.0 [facility] ([place]) Comment on above: Result Comment: Use of this assay is not recommended for patients undergoing treatment with eltrombopag due to the potential for falsely elevated results. Performed By: #### C KMBM, CKMB #### [place] [address] #### CMP, GFR #### [address] [address] BUN/Creatinine Ratio 18 ratio Normal 7-27 [facility] ([place]) Comment on above: Performed By: #### C KMBM, CKMB #### [place] [address] #### CMP, GFR #### [address] [address] Calcium [Mass/Vol] 9.0 mg/dL Normal 8.4-10.2 [facility] ([place]) Comment on above: Performed By: #### C KMBM, CKMB #### [place] [address] #### CMP, GFR #### [address] [address] Chloride [Moles/Vol] 99 mmol/L Normal 98-107 [facility] ([place]) Comment on above: Performed By: #### C KMBM, CKMB #### [place] [address] #### CMP, GFR #### [address] [address] CO2 [Moles/Vol] 28 mmol/L Normal 23-31 [facility] ([place]) Comment on above: Performed By: #### C KMBM, CKMB #### [place] [address] #### CMP, GFR #### [address] [address] Creatinine [Mass/Vol] 1.21 mg/dL Normal 0.70-1.30 [facility] ([place]) Comment on above: Performed By: #### C KMBM, CKMB #### [place] [address] #### CMP, GFR #### [address] [address] Electrolyte Balance 8.0 mEq/L Normal 4.0-15.0 [facility] ([place]) Comment on above: Performed By: #### C KMBM, CKMB #### [place] [address] #### CMP, GFR #### [address] [address] Globulin 3.4 G/dL Normal [facility] ([place]) Comment on above: Performed By: #### C KMBM, CKMB #### [place] [address] #### CMP, GFR #### [address] [address] Glucose [Mass/Vol] 125 mg/dL High 80-115 [facility] ([place]) Comment on above: Performed By: #### C KMBM, CKMB #### [place] [address] #### CMP, GFR #### [address] [address] Potassium [Moles/Vol] 3.9 mmol/L Normal 3.5-5.1 [facility] ([place]) Comment on above: Performed By: #### C KMBM, CKMB #### [place] [address] #### CMP, GFR #### [address] [address] Sodium [Moles/Vol] 135 mmol/L Low 136-145 [facility] ([place]) Comment on above: Performed By: #### C KMBM, CKMB #### [place] [address] #### CMP, GFR #### [address] [address] Total Protein 7.3 G/dL Normal 6.4-8.2 [facility] ([place]) Comment on above: Performed By: #### C KMBM, CKMB #### [place] [address] #### CMP, GFR #### [address] [address] Urea nitrogen [Mass/Vol] 22 mg/dL High 7-18 [facility] ([place]) Comment on above: Performed By: #### C KMBM, CKMB #### [place] [address] #### CMP, GFR #### [address] [address] Albumin Level 3.9 G/dL Normal 3.4-4.8 [facility] ([place]) Comment on above: Performed By: #### C KMBM, CKMB #### [place] [address] #### CMP, GFR #### [address] [address] Albumin/Globulin [Mass ratio] 1.1 {ratio} Normal 1.1-2.5 [facility] ([place]) Comment on above: Performed By: #### C KMBM, CKMB #### [place] [address] #### CMP, GFR #### [address] [address] ALP [Catalytic activity/Vol] 88 U/L Normal 40-135 [facility] ([place]) Comment on above: Performed By: #### C KMBM, CKMB #### [address] [address] #### CMP, GFR #### [address] [address] ALT [Catalytic activity/Vol] 47 U/L Normal 16-63 [facility] ([place] Comment on above: Performed By: #### C KMBM, CKMB #### [place] [address] #### CMP, GFR #### [address] [address] AST [Catalytic activity/Vol] 21 U/L Normal 10-40 [facility] ([place]) Comment on above: Performed By: #### C KMBM, CKMB #### [place] [address] #### CMP, GFR #### [address] [address] Bili Total 0.6 mg/dL Normal 0.2-1.0 [facility] ([place]) Comment on above: Result Comment: Use of this assay is not recommended for patients undergoing treatment with eltrombopag due to the potential for falsely elevated results. Performed By: #### C KMBM, CKMB #### [place] [address] #### CMP, GFR #### [address] [address] BUN/Creatinine Ratio 18 ratio Normal 7-27 [facility] ([place]) Comment on above: Performed By: #### C KMBM, CKMB #### [place] [address] #### CMP, GFR #### [address] [address] Calcium [Mass/Vol] 9.1 mg/dL Normal 8.4-10.2 [facility] ([place]) Comment on above: Performed By: #### C KMBM, CKMB #### [place] [address] #### CMP, GFR #### [address] [address] Chloride [Moles/Vol] 99 mmol/L Normal 98-107 [facility] ([place]) Comment on above: Performed By: #### C KMBM, CKMB #### [place] [address] #### CMP, GFR #### [address] [address] CO2 [Moles/Vol] 28 mmol/L Normal 23-31 [facility] ([place]) Comment on above: Performed By: #### C KMBM, CKMB #### [place] [address] #### CMP, GFR #### [address] [address] Creatinine [Mass/Vol] 1.14 mg/dL Normal 0.70-1.30 [facility] ([place]) Comment on above: Performed By: #### C KMBM, CKMB #### [place] [address] #### CMP, GFR #### [address] [address] Electrolyte Balance 8.0 mEq/L Normal 4.0-15.0 [facility] ([place]) Comment on above: Performed By: #### C KMBM, CKMB #### [place] [address] #### CMP, GFR #### [address] [address] Globulin 3.4 G/dL Normal [facility] ([place]) Comment on above: Performed By: #### C KMBM, CKMB #### [place] [address] #### CMP, GFR #### [address] [address] Glucose [Mass/Vol] 125 mg/dL High 80-115 [facility] ([place]) Comment on above: Performed By: #### C KMBM, CKMB #### [address] [address] #### CMP, GFR #### [address] [address] Potassium [Moles/Vol] 3.9 mmol/L Normal 3.5-5.1 [facility] ([place]) Comment on above: Performed By: #### C KMBM, CKMB #### [address] [address] #### CMP, GFR #### [address] [address] Sodium [Moles/Vol] 135 mmol/L Low 136-145 [facility] ([place]) Comment on above: Performed By: #### C KMBM, CKMB #### [place] [address] #### CMP, GFR #### [address] [address] Total Protein 7.3 G/dL Normal 6.4-8.2 [facility] ([place]) Comment on above: Performed By: #### C KMBM, CKMB #### [place] [address] #### CMP, GFR #### [address] [address] Urea nitrogen [Mass/Vol] 21 mg/dL High 7-18 [facility] ([place]) Comment on above: Performed By: #### C KMBM, CKMB #### [place] [address] #### CMP, GFR #### [address] [address] CRPHSon 05-31-2023 CRP, High Sensitive 2.41 mg/L Normal 0.20-3.00 [facility] ([place]) Comment on above: Order Comment: STAT Result Comment: Rela tive Risk Category and Average hs-CRP Level: Higher Risk: > 5.0 mg/L Guidelines support that hs-CRP can be used as an independent predictor of increased coronary risk; however, hs-CRP results should only be interpreted in conjunction with other cardiac risk factors in establishing overall cardiac risk for a given patient. Performed By: #### C KMBM, CKMB #### [place] [address] #### CMP, GFR #### [address] [address] DIMERon 05-31-2023 D-Dimer 216 ng/mL D-DU Normal 0-230 [facility] ([place]) Comment on above: Order Comment: STAT Result Comment: The result of the D-Dimer test should be evaluated in the context of all the clinical and laboratory data available. In those instances where the laboratory result does not agree with the clinical evaluation, additional tests should be performed accordingly. If the D-Dimer result is used to exclude DVT or PE, the recommended cutoff value is less than 230 ng/mL. The D-Dimer result should not be used alone to rule in DVT/PE, but should be used in conjunction with a clinical pretest probability (PTP)assessment model to exclude venous thromboembolism (VTE) in outpatients suspected of deep venous thrombosis (DVT) and pulmonary embolism (PE). Performed By: #### C GUANAKITOBM, CKMB #### [place] [address] #### CMP, GFR #### [place] [address] ESRon 05-31-2023 Erythrocyte Sed Rate 4 mm/hr Normal 0-20 [facility] ([place]) Comment on above: Order Comment: STAT Performed By: #### C KMBM, CKMB #### [place] [address] #### CMP, GFR #### [address] [address] Victor Hugo 05-31-2023 Ferritin [Mass/Vol] 339.0 ng/mL Normal 26.0-388.0 [facility] ([place]) Comment on above: Performed By: #### C KMBM, CKMB #### [place] [address] #### CMP, GFR #### [place] [address] FESon 05-31-2023 Iron [Mass/Vol] 75 ug/dL Normal 65-175 [facility] ([place]) Comment on above: Performed By: #### C KMBM, CKMB #### [place] [address] #### CMP, GFR #### [address] [address] Iron Sat 27 % Normal [facility] ([place]) Comment on above: Performed By: #### C KMBM, CKMB #### [address] [address] #### CMP, GFR #### [address] [address] TIBC 275 mcg/dL Normal 250-450 [facility] ([place]) Comment on above: Performed By: #### C KMBM, CKMB #### [place] [address] #### CMP, GFR #### [address] [address] FT4on 05-31-2023 Free T4 [Mass/Vol] 0.92 ng/dL Normal 0.76-1.46 [facility] ([place]) Comment on above: Performed By: #### C KMBM, CKMB #### [place] [address] #### CMP, GFR #### [address] [address] LIPIDon 05-31-2023 Cholesterol [Mass/Vol] 207 mg/dL High 0-200 [facility] ([place]) Comment on above: Result Comment: Chol esterol Reference Interval: Less than 200 Desirable 200-239 Borderline high risk 240 and above High risk Performed By: #### C KMBM, CKMB #### [place] [address] #### CMP, GFR #### [address] [address] Cholesterol in HDL [Mass/Vol] 47 mg/dL Normal 40-60 [facility] ([place]) Comment on above: Performed By: #### C KMBM, CKMB #### [place] [address] #### CMP, GFR #### [address] [address] Cholesterol in LDL [Mass/Vol] 120 mg/dL Normal 0-130 [facility] ([place]) Comment on above: Performed By: #### C KMBM, CKMB #### [place] [address] #### CMP, GFR #### [place] [address] Triglyceride [Mass/Vol] 201 mg/dL High 0-150 [facility] ([place]) Comment on above: Result Comment: Trig lyceride Reference Interval: Less than 150 Normal 150-199 Borderline high risk 200-499 High risk 500 or higher Very high risk Performed By: #### C KMBM, CKMB #### [place] [address] #### CMP, GFR #### [place] [address] MGon 05-31-2023 Magnesium [Mass/Vol] 2.0 mg/dL Normal 1.8-2.4 [facility] ([place]) Comment on above: Performed By: #### C KMBM, CKMB #### [place] [address] #### CMP, GFR #### [place] [address] PSAon 05-31-2023 Prostate Specific Antigen 0.48 ng/mL Normal 0.00-4.00 [facility] ([place]) Comment on above: Performed By: #### C KMBM, CKMB #### [place] [address] #### CMP, GFR #### [place] [address] TSHon 05-31-2023 TSH Qn 2.09 m[IU]/L Normal 0.36-3.74 [facility] ([place]) Comment on above: Performed By: #### C KMBM, CKMB #### [place] [address] #### CMP, GFR #### [place] [address] VIDHon 05-31-2023 Vit. D 25-Hydroxy 25.2 ng/mL Normal [facility] ([place]) Comment on above: Result Comment: Inte rpretive Values Based on Total 25(OH) Vitamin D: Deficient <20 ng/mL Insufficient 20 - <30 ng/mL Sufficient 30-100 ng/mL Performed By: #### C KMBM, CKMB #### [place] [address] #### CMP, GFR #### [address] [address] .Auto Diffon 08-16-2022 Basophil, Absolute 0.0 10 3/mcL Normal 0.0-0.2 [facility] ([place]) Comment on above: Performed By: #### G FR, CMP, LIP #### [address] [address] Basophils/100 WBC (Bld) 0.3 % Normal 0.0-2.5 [facility] ([place]) Comment on above: Performed By: #### G FR, CMP, LIP #### [address] [address] Eosinophil, Absolute 0.0 10 3/mcL Normal 0.0-0.4 [facility] [place] Comment on above: Performed By: #### G FR, CMP, LIP #### [address] [address] Eosinophils/100 WBC (Bld) 0.1 % Normal 0.0-7.0 [facility] ([place]) Comment on above: Performed By: #### G FR, CMP, LIP #### [address] [address] Lymphocyte, Absolute 1.2 10 3/mcL Normal 0.8-3.9 [facility] [place] Comment on above: Performed By: #### G FR, CMP, LIP #### [address] [address] Lymphocytes/100 WBC (Bld) 10.9 % Normal 10.0-50.0 [facility] ([place]) Comment on above: Performed By: #### G FR, CMP, LIP #### [address] [address] Monocyte, Absolute 0.6 10 3/mcL Normal 0.2-1.0 [facility] ([place]) Comment on above: Performed By: #### G FR, CMP, LIP #### [address] [address] Monocytes/100 WBC (Bld) 4.9 % Normal 1.7-13.0 [facility] ([place]) Comment on above: Performed By: #### G FR, CMP, LIP #### [address] [address] Neutrophils/100 WBC (Bld) 83.8 % High 37.0-80.0 [facility] ([place]) Comment on above: Performed By: #### G FR, CMP, LIP #### [address] [address] .GFRon 08-16-2022 GFR 91 ml/min/1.73sqm Normal [facility] ([place]) Comment on above: Result Comment: GFR Population mean for , Non- Americans Ages 20-29 = 116 mL/min/1.73 sq.m. Ages 30-39 = 107 mL/min/1.73 sq.m. Ages 40-49 = 99 mL/min/1.73 sq.m. Ages 50-59 = 93 mL/min/1.73 sq.m. Ages 60-69 = 85 mL/min/1.73 sq.m. Ages 70+ = 75 mL/min/1.73 sq.m. Chronic Kidney Disease: Less than 60 mL/min/1.73 square meters End Stage Renal Disease: Less than 15 mL/min/1.73 square meters Performed By: #### C KMBM, CKMB #### [address] [address] #### CMP, GFR #### [address] [address] GFR Non- 75 ml/min/1.73sqm Normal [facility] ([place]) Comment on above: Result Comment: GFR Population mean for , Non- Americans Ages 20-29 = 116 mL/min/1.73 sq.m. Ages 30-39 = 107 mL/min/1.73 sq.m. Ages 40-49 = 99 mL/min/1.73 sq.m. Ages 50-59 = 93 mL/min/1.73 sq.m. Ages 60-69 = 85 mL/min/1.73 sq.m. Ages 70+ = 75 mL/min/1.73 sq.m. Chronic Kidney Disease: Less than 60 mL/min/1.73 square meters End Stage Renal Disease: Less than 15 mL/min/1.73 square meters Performed By: #### C KMBM, CKMB #### [place] [address] #### CMP, GFR #### [address] [address] .MDWon 08-16-2022 Monocyte Distribution Width 17.94 Normal 0.00-20.00 [facility] ([place]) Comment on above: Result Comment: For ED adult patients suspected of sepsis, MDW<=20.0 does not rule out sepsis or risk of sepsis Performed By: #### G FR, CMP, LIP #### [address] [address] .Morphon 08-16-2022 Platelet Estimate Normal Normal [facility] ([place]) Comment on above: Performed By: #### G FR, CMP, LIP #### [address] [address] .NEUABSon 08-16-2022 Neutrophil, Absolute 9.5 10 3/mcL High 2.9-6.2 [facility] [place] Comment on above: Performed By: #### G FR, CMP, LIP #### [address] [address] .Urinalysis Microscopic (AO) on 08-16-2022 UA Amorphus 4+ /hpf Normal [facility] ([place]) Comment on above: Performed By: #### C KMBM, CKMB #### [place] [address] #### CMP, GFR #### [address] [address] UA RBC None Seen Normal None Seen [facility] ([place]) Comment on above: Performed By: #### C KMBM, CKMB #### [place] [address] #### CMP, GFR #### [place] [address] UA Squam Epithelial 0-5 Abnormal None Seen [facility] ([place]) Comment on above: Performed By: #### C KMBM, CKMB #### [place] [address] #### CMP, GFR #### [place] [address] UA WBC None Seen Normal None Seen [facility] ([place]) Comment on above: Performed By: #### C KMBM, CKMB #### [place] [address] #### CMP, GFR #### [place] [address] CBCon 08-16-2022 Erythrocyte distribution width (RBC) [Ratio] 14.5 % Normal 11.5-14.5 [facility] ([place]) Comment on above: Performed By: #### G FR, CMP, LIP #### [place] [id number] Hematocrit (Bld) [Volume fraction] 46.9 % Normal 42.0-52.0 [facility] ([place]) Comment on above: Performed By: #### G FR, CMP, LIP #### [address] [address] Hgb 16.3 G/dL Normal 14.0-18.0 [facility] ([place]) Comment on above: Performed By: #### G FR, CMP, LIP #### [address] [address] MCH (RBC) [Entitic mass] 31.3 pg High 27.0-31.2 [facility] ([place]) Comment on above: Performed By: #### G FR, CMP, LIP #### [address] [address] MCHC 34.7 G/dL Normal 31.8-35.4 [facility] ([place]) Comment on above: Performed By: #### G FR, CMP, LIP #### [address] [address] MCV (RBC) [Entitic vol] 90.2 fL Normal 80.0-94.0 [facility] ([place]) Comment on above: Performed By: #### G FR, CMP, LIP #### [address] [address] Platelet 310 10 3/mcL Normal 130-400 [facility] ([place]) Comment on above: Performed By: #### G FR, CMP, LIP #### [address] [address] Platelet mean volume (Bld) [Entitic vol] 8.3 fL Normal 7.4-10.4 [facility] ([place]) Comment on above: Performed By: #### G FR, CMP, LIP #### [address] [address] RBC 5.20 10 6/mcL Normal 4.04-6.13 [facility] ([place]) Comment on above: Performed By: #### G FR, CMP, LIP #### [address] [address] WBC 11.3 10 3/mcL High 4.6-10.8 [facility] ([place]) Comment on above: Performed By: #### G FR, CMP, LIP #### [address] [address] CMPon 08-16-2022 Albumin Level 4.1 G/dL Normal 3.4-4.8 [facility] ([place]) Comment on above: Performed By: #### C KMBM, CKMB #### [address] [address] #### CMP, GFR #### [address] [address] Albumin/Globulin [Mass ratio] 1.1 {ratio} Normal 1.1-2.5 [facility] ([place]) Comment on above: Performed By: #### C KMBM, CKMB #### [place] [address] #### CMP, GFR #### [address] [address] ALP [Catalytic activity/Vol] 110 U/L Normal 40-135 [facility] ([place]) Comment on above: Performed By: #### C KMBM, CKMB #### [place] [address] #### CMP, GFR #### [address] [address] ALT [Catalytic activity/Vol] 49 U/L Normal 16-63 [facility] ([place]) Comment on above: Performed By: #### C KMBM, CKMB #### [place] [address] #### CMP, GFR #### [place] [id number] AST [Catalytic activity/Vol] 40 U/L Normal 10-40 [facility] ([place]) Comment on above: Performed By: #### C KMBM, CKMB #### [place] [address] #### CMP, GFR #### [address] [address] Bili Total 0.7 mg/dL Normal 0.2-1.0 [facility] ([place]) Comment on above: Result Comment: Use of this assay is not recommended for patients undergoing treatment with eltrombopag due to the potential for falsely elevated results. Performed By: #### C KMBM, CKMB #### [place] [address] #### CMP, GFR #### [place] [id number] BUN/Creatinine Ratio 18 ratio Normal 7-27 [facility] ([place]) Comment on above: Performed By: #### C KMBM, CKMB #### [place] [address] #### CMP, GFR #### [address] [address] Calcium [Mass/Vol] 9.0 mg/dL Normal 8.4-10.2 [facility] ([place]) Comment on above: Performed By: #### C KMBM, CKMB #### [place] [address] #### CMP, GFR #### [address] [address] Chloride [Moles/Vol] 98 mmol/L Normal 98-107 [facility] ([place]) Comment on above: Performed By: #### C KMBM, CKMB #### [place] [address] #### CMP, GFR #### [address] [address] CO2 [Moles/Vol] 33 mmol/L High 23-31 [facility] ([place]) Comment on above: Performed By: #### C KMBM, CKMB #### [place] [address] #### CMP, GFR #### [address] [address] Creatinine [Mass/Vol] 1.00 mg/dL Normal 0.70-1.30 [facility] ([place]) Comment on above: Performed By: #### C KMBM, CKMB #### [place] [address] #### CMP, GFR #### [address] [address] Electrolyte Balance 7.0 mEq/L Normal 4.0-15.0 [facility] ([place]) Comment on above: Performed By: #### C KMBM, CKMB #### [place] [address] #### CMP, GFR #### [address] [address] Globulin 3.6 G/dL Normal [facility] ([place]) Comment on above: Performed By: #### C KMBM, CKMB #### [address] [address] #### CMP, GFR #### [address] [address] Glucose [Mass/Vol] 139 mg/dL High 80-115 [facility] ([place]) Comment on above: Performed By: #### C KMBM, CKMB #### [place] [address] #### CMP, GFR #### [address] [address] Potassium [Moles/Vol] 4.7 mmol/L Normal 3.5-5.1 [facility] ([place]) Comment on above: Performed By: #### C KMBM, CKMB #### [place] [address] #### CMP, GFR #### [address] [address] Sodium [Moles/Vol] 138 mmol/L Normal 136-145 [facility] ([place]) Comment on above: Performed By: #### C KMBM, CKMB #### [place] [address] #### CMP, GFR #### [address] [address] Total Protein 7.7 G/dL Normal 6.4-8.2 [facility] ([place]) Comment on above: Performed By: #### C KMBM, CKMB #### [address] [address] #### CMP, GFR #### [address] [address] Urea nitrogen [Mass/Vol] 18 mg/dL Normal 7-18 [facility] ([place]) Comment on above: Performed By: #### C KMBM, CKMB #### [facility] [address] [place] [address] #### CMP, GFR #### [place] [id number] [place], [place] [address] CT ABD/PELVIS W/ IV CONTRAST ONLYon 08-16-2022 CT ABD/PELVIS W/ IV CONTRAST ONLY ORIGINAL EXAMINATION: CT OF THE ABDOMEN AND PELVIS WITH CONTRAST 08/16/2022 5:39 am TECHNIQUE: CT of the abdomen and pelvis was performed with the administration of intravenous contrast. Multiplanar reformatted images are provided for review. Automated exposure control, iterative reconstruction, and/or weight based adjustment of the mA/kV was utilized to reduce the radiation dose to as low as reasonably achievable. COMPARISON: None. HISTORY: ORDERING SYSTEM PROVIDED HISTORY: Reason for Exam: pain FINDINGS: Fatty infiltration of the liver. Cholelithiasis without evidence of acute cholecystitis. Spleen, adrenal glands, pancreas demonstrate no acute abnormalities. Kidneys enhance symmetrically. Small bowel colon are in course and caliber. No evidence of an acute obstructive or inflammatory process is identified. Aorta is normal in caliber. No lymphadenopathy. No intra-abdominal free air or free fluid. Lung bases are clear. Visualized osseous structures are intact visualized osseous structures are intact. IMPRESSION: Fatty infiltration of the liver. Cholelithiasis without evidence of acute cholecystitis. No additional acute findings. Interpreted by: Matt Jules MD Preliminary Report By: Matt Jules MD Electronically signed By Matt Jules MD Dictated Date: 08/16/2022 6:14:30 AM Prelim Date: 08/16/2022 6:28:53 AM Sign Date: 08/16/2022 6:28:53 AM Ordering Provider: TYLER GARCIA [facility] ([place]) LABORATORYOrdered By: Jenn Arredondo on 08-16-2022 Albumin BCP dye [Mass/Vol] 4.1 G/dL Invalid Interpretation Code 3.4 - 4.8 G/dL AO ADM SS Albumin/Globulin [Mass ratio] 1.1 {ratio} Invalid Interpretation Code 1.1 - 2.5 ratio AO ADM SS ALP [Catalytic activity/Vol] 110 U/L Invalid Interpretation Code 40 - 135 U/L AO ADM SS ALT With P-5'-P [Catalytic activity/Vol] 49 U/L Invalid Interpretation Code 16 - 63 U/L AO ADM SS AST With P-5'-P [Catalytic activity/Vol] 40 U/L Invalid Interpretation Code 10 - 40 U/L AO ADM SS Basophil, Absolute 0.0 103/mcL Invalid Interpretation Code 0.0 - 0.2 10^3/mcL AO Workflow SS Basophils/100 WBC (Bld) 0.3 % Invalid Interpretation Code 0.0 - 2.5 % AO Workflow SS Bilirubin [Mass/Vol] 0.7 mg/dL Invalid Interpretation Code 0.2 - 1.0 mg/dL AO ADM SS Calcium [Mass/Vol] 9.0 mg/dL Invalid Interpretation Code 8.4 - 10.2 mg/dL AO ADM SS Chloride [Moles/Vol] 98 mmol/L Invalid Interpretation Code 98 - 107 mmol/L AO ADM SS CO2 [Moles/Vol] 33 mmol/L Invalid Interpretation Code 23 - 31 mmol/L AO ADM SS Creatinine [Mass/Vol] 1.00 mg/dL Invalid Interpretation Code 0.70 - 1.30 mg/dL AO ADM SS Electrolyte Balance 7.0 mEq/L Invalid Interpretation Code 4.0 - 15.0 mEq/L AO ADM SS Eosinophil, Absolute 0.0 103/mcL Invalid Interpretation Code 0.0 - 0.4 10^3/mcL AO Workflow SS Eosinophils/100 WBC (Bld) 0.1 % Invalid Interpretation Code 0.0 - 7.0 % AO Workflow SS Erythrocyte distribution width (RBC) [Ratio] 14.5 % Invalid Interpretation Code 11.5 - 14.5 % AO Workflow SS Globulin 3.6 G/dL Invalid Interpretation Code AO ADM SS Glucose [Mass/Vol] 139 mg/dL Invalid Interpretation Code 80 - 115 mg/dL AO ADM SS Hematocrit (Bld) [Volume fraction] 46.9 % Invalid Interpretation Code 42.0 - 52.0 % AO Workflow SS Hemoglobin (Bld) [Mass/Vol] 16.3 G/dL Invalid Interpretation Code 14.0 - 18.0 G/dL AO Workflow SS Lipase [Catalytic activity/Vol] 104 U/L Invalid Interpretation Code 73 - 393 U/L AO ADM SS Lymphocyte, Absolute 1.2 103/mcL Invalid Interpretation Code 0.8 - 3.9 10^3/mcL AO Workflow SS Lymphocytes/100 WBC (Bld) 10.9 % Invalid Interpretation Code 10.0 - 50.0 % AO Workflow SS MCH (RBC) [Entitic mass] 31.3 pg Invalid Interpretation Code 27.0 - 31.2 pg AO Workflow SS MCHC 34.7 G/dL Invalid Interpretation Code 31.8 - 35.4 G/dL AO Workflow SS MCV (RBC) [Entitic vol] 90.2 fL Invalid Interpretation Code 80.0 - 94.0 fL AO Workflow SS Monocyte distribution width Auto (Bld) [Entitic vol] 17.94 Invalid Interpretation Code 0.00 - 20.00 AO Workflow SS Comment on above: Result Comment: For ED adult patients suspected of sepsis, MDW<=20.0 does not rule out sepsis or risk of sepsis Monocyte, Absolute 0.6 103/mcL Invalid Interpretation Code 0.2 - 1.0 10^3/mcL AO Workflow SS Monocytes/100 WBC (Bld) 4.9 % Invalid Interpretation Code 1.7 - 13.0 % AO Workflow SS Neutrophil, Absolute 9.5 103/mcL Invalid Interpretation Code 2.9 - 6.2 10^3/mcL AO Workflow SS Neutrophils/100 WBC (Bld) 83.8 % Invalid Interpretation Code 37.0 - 80.0 % AO Workflow SS Platelet Estimate Normal (08/16/22 4:36 AM) Invalid Interpretation Code AO Hematology S Platelet mean volume (Bld) [Entitic vol] 8.3 fL Invalid Interpretation Code 7.4 - 10.4 fL AO Workflow SS Platelets (Bld) [#/Vol] 310 103/mcL Invalid Interpretation Code 130 - 400 10^3/mcL AO Workflow SS Potassium [Moles/Vol] 4.7 mmol/L Invalid Interpretation Code 3.5 - 5.1 mmol/L AO ADM SS Protein [Mass/Vol] 7.7 G/dL Invalid Interpretation Code 6.4 - 8.2 G/dL AO ADM SS RBC (Bld) [#/Vol] 5.20 106/mcL Invalid Interpretation Code 4.04 - 6.13 10^6/mcL AO Workflow SS Sodium [Moles/Vol] 138 mmol/L Invalid Interpretation Code 136 - 145 mmol/L AO ADM SS Urea nitrogen [Mass/Vol] 18 mg/dL Invalid Interpretation Code 7 - 18 mg/dL AO ADM SS Urea nitrogen/Creatinine [Mass ratio] 18 ratio Invalid Interpretation Code 7 - 27 ratio AO ADM SS WBC (Bld) [#/Vol] 11.3 103/mcL Invalid Interpretation Code 4.6 - 10.8 10^3/mcL AO Workflow SS Appearance (U) Cloudy *ABN* (08/16/22 4:17 AM) Invalid Interpretation Code Clear AO Auto Urine SS Bilirubin Ql (U) Negative (08/16/22 4:17 AM) Invalid Interpretation Code Negative AO Auto Urine SS Color (U) Yellow (08/16/22 4:17 AM) Invalid Interpretation Code AO Auto Urine SS Crystals.amorphous LM.HPF (Urine sed) [#/Area] 4 /[HPF] Invalid Interpretation Code AO Auto Urine SS Glucose Test strip (U) [Mass/Vol] Negative Invalid Interpretation Code Negativemg/d L AO Auto Urine SS Hemoglobin Auto test strip (U) [Mass/Vol] Negative (08/16/22 4:17 AM) Invalid Interpretation Code Negative AO Auto Urine SS Ketones Ql (U) Negative Invalid Interpretation Code Negativemg/d L AO Auto Urine SS UA Leuk Est Negative (08/16/22 4:17 AM) Invalid Interpretation Code Negative AO Auto Urine SS UA Nitrite Negative (08/16/22 4:17 AM) Invalid Interpretation Code Negative AO Auto Urine SS UA pH 8.0 (08/16/22 4:17 AM) Invalid Interpretation Code 5.0 - 8.0 AO Auto Urine SS UA Protein Negative Invalid Interpretation Code Negativemg/d L AO Auto Urine SS UA RBC None Seen /HPF Invalid Interpretation Code None Seen/HPF AO Auto Urine SS UA Spec Grav 1.020 (08/16/22 4:17 AM) Invalid Interpretation Code 1.015-1.025 AO Auto Urine SS UA Specimen Type Clean Catch (08/16/22 4:17 AM) Invalid Interpretation Code AO Auto Urine SS UA Squam Epithelial 0-5 /HPF Invalid Interpretation Code None Seen/HPF AO Auto Urine SS UA Urobilinogen 0.2 E.U./dL Invalid Interpretation Code 0.2-1.0E.U./ dL AO Auto Urine SS WBC LM.HPF (Urine sed) [#/Area] None Seen /HPF Invalid Interpretation Code None Seen/HPF AO Auto Urine SS LABORATORYOrdered By: SYSTEM SYSTEM on 08-16-2022 GFR 91 ml/min/1.73sqm Invalid Interpretation Code AO Chemistry S GFR Non- 75 ml/min/1.73sqm Invalid Interpretation Code AO Chemistry S LIPon 08-16-2022 Lipase Level 104 U/L Normal 73-393 [facility] ([place]) Comment on above: Performed By: #### C KMBM, CKMB #### [place] [address] #### CMP, GFR #### [address] [address] UAon 08-16-2022 Color (U) Yellow Normal [facility] ([place]) Comment on above: Performed By: #### C KMBM, CKMB #### [place] [address] #### CMP, GFR #### [address] [address] Glucose (U) [Mass/Vol] Negative Normal Negative [facility] ([place]) Comment on above: Performed By: #### C KMBM, CKMB #### [place] [address] #### CMP, GFR #### [address] [address] Ketones Ql (U) Negative Normal Negative [facility] ([place]) Comment on above: Performed By: #### C KMBM, CKMB #### [place] [address] #### CMP, GFR #### [address] [address] UA Appear Cloudy Abnormal Clear [facility] ([place]) Comment on above: Performed By: #### C KMBM, CKMB #### [place] [address] #### CMP, GFR #### [address] [address] UA Blood Negative Normal Negative [facility] ([place]) Comment on above: Performed By: #### C KMBM, CKMB #### [place] [address] #### CMP, GFR #### [address] [address] UA Leuk Est Negative Normal Negative [facility] ([place]) Comment on above: Performed By: #### C KMBM, CKMB #### [place] [address] #### CMP, GFR #### [address] [address] UA Nitrite Negative Normal Negative [facility] ([place]) Comment on above: Performed By: #### C KMBM, CKMB #### [place] [address] #### CMP, GFR #### [address] [address] UA pH 8.0 Normal 5.0 - 8.0 [facility] ([place]) Comment on above: Performed By: #### C KMBM, CKMB #### [place] [address] #### CMP, GFR #### [address] [address] UA Protein Negative Normal Negative [facility] ([place]) Comment on above: Performed By: #### C KMBM, CKMB #### [place] [address] #### CMP, GFR #### [address] [address] UA Spec Grav 1.020 Normal 1.015-1.025 [facility] ([place]) Comment on above: Performed By: #### C KMBM, CKMB #### [place] [address] #### CMP, GFR #### [address] [address] UA Specimen Type Clean Catch Normal [facility] ([place]) Comment on above: Performed By: #### C KMBM, CKMB #### [place] [address] #### CMP, GFR #### [address] [address] UA Urobilinogen 0.2 E.U./dL Normal 0.2-1.0 [facility] ([place]) Comment on above: Performed By: #### C KMBM, CKMB #### [place] [address] #### CMP, GFR #### [address] [address] Urobilinogen (U) [Mass/Vol] Negative Normal Negative [facility] ([place]) Comment on above: Performed By: #### C KMBM, CKMB #### [place] [address] #### CMP, GFR #### [address] [address] .Auto Diffon 07-09-2022 Basophil, Absolute 0.0 10 3/mcL Normal 0.0-0.2 [facility] ([place]) Comment on above: Performed By: #### C KMBM, CKMB #### [place] [address] #### CMP, GFR #### [address] [address] Basophils/100 WBC (Bld) 0.6 % Normal 0.0-2.5 [facility] ([place] Comment on above: Performed By: #### C KMBM, CKMB #### [place] [address] #### CMP, GFR #### [address] [address] Eosinophil, Absolute 0.1 10 3/mcL Normal 0.0-0.4 [facility] [place] Comment on above: Performed By: #### C KMBM, CKMB #### [place] [address] #### CMP, GFR #### [address] [address] Eosinophils/100 WBC (Bld) 1.7 % Normal 0.0-7.0 [facility] ([place] Comment on above: Performed By: #### C KMBM, CKMB #### [place] [address] #### CMP, GFR #### [address] [address] Lymphocyte, Absolute 1.6 10 3/mcL Normal 0.8-3.9 [facility] [place] Comment on above: Performed By: #### C KMBM, CKMB #### [place] [address] #### CMP, GFR #### [address] [address] Lymphocytes/100 WBC (Bld) 25.4 % Normal 10.0-50.0 [facility] ([place]) Comment on above: Performed By: #### C KMBM, CKMB #### [place] [address] #### CMP, GFR #### [address] [address] Monocyte, Absolute 0.6 10 3/mcL Normal 0.2-1.0 [facility] ([place]) Comment on above: Performed By: #### C KMBM, CKMB #### [place] [address] #### CMP, GFR #### [address] [address] Monocytes/100 WBC (Bld) 10.0 % Normal 1.7-13.0 [facility] ([place] Comment on above: Performed By: #### C KMBM, CKMB #### [place] [address] #### CMP, GFR #### [address] [address] Neutrophils/100 WBC (Bld) 62.3 % Normal 37.0-80.0 [facility] ([place] Comment on above: Performed By: #### C KMBM, CKMB #### [place] [address] #### CMP, GFR #### [address] [address] .GFRon 07-09-2022 GFR 86 ml/min/1.73sqm Normal [facility] ([place]) Comment on above: Result Comment: GFR Population mean for , Non- Americans Ages 20-29 = 116 mL/min/1.73 sq.m. Ages 30-39 = 107 mL/min/1.73 sq.m. Ages 40-49 = 99 mL/min/1.73 sq.m. Ages 50-59 = 93 mL/min/1.73 sq.m. Ages 60-69 = 85 mL/min/1.73 sq.m. Ages 70+ = 75 mL/min/1.73 sq.m. Chronic Kidney Disease: Less than 60 mL/min/1.73 square meters End Stage Renal Disease: Less than 15 mL/min/1.73 square meters Performed By: #### C HARLEEN, CKMB #### [address] [address] #### CMP, GFR #### [address] [address] GFR Non- 71 ml/min/1.73sqm Normal [facility] ([place]) Comment on above: Result Comment: GFR Population mean for , Non- Americans Ages 20-29 = 116 mL/min/1.73 sq.m. Ages 30-39 = 107 mL/min/1.73 sq.m. Ages 40-49 = 99 mL/min/1.73 sq.m. Ages 50-59 = 93 mL/min/1.73 sq.m. Ages 60-69 = 85 mL/min/1.73 sq.m. Ages 70+ = 75 mL/min/1.73 sq.m. Chronic Kidney Disease: Less than 60 mL/min/1.73 square meters End Stage Renal Disease: Less than 15 mL/min/1.73 square meters Performed By: #### C KMBM, CKMB #### [address] [address] #### CMP, GFR #### [address] [address] .NEUABSon 07-09-2022 Neutrophil, Absolute 4.0 10 3/mcL Normal 2.9-6.2 [facility] [place] Comment on above: Performed By: #### C KMBM, CKMB #### [address] [address] #### CMP, GFR #### [address] [address] BMPon 07-09-2022 BUN/Creatinine Ratio 12 ratio Normal 7-27 [facility] ([place]) Comment on above: Performed By: #### C KMBM, CKMB #### [place] [address] #### CMP, GFR #### [address] [address] Calcium [Mass/Vol] 8.7 mg/dL Normal 8.4-10.2 [facility] ([place]) Comment on above: Performed By: #### C KMBM, CKMB #### [place] [address] #### CMP, GFR #### [address] [address] Chloride [Moles/Vol] 101 mmol/L Normal 98-107 [facility] ([place]) Comment on above: Performed By: #### C KMBM, CKMB #### [place] [address] #### CMP, GFR #### [address] [address] CO2 [Moles/Vol] 32 mmol/L High 23-31 [facility] ([place]) Comment on above: Performed By: #### C KMBM, CKMB #### [place] [address] #### CMP, GFR #### [address] [address] Creatinine [Mass/Vol] 1.05 mg/dL Normal 0.70-1.30 [facility] ([place]) Comment on above: Performed By: #### C KMBM, CKMB #### [place] [address] #### CMP, GFR #### [address] [address] Electrolyte Balance 6.0 mEq/L Normal 4.0-15.0 [facility] ([place]) Comment on above: Performed By: #### C KMBM, CKMB #### [address] [address] #### CMP, GFR #### [address] [address] Glucose [Mass/Vol] 92 mg/dL Normal 80-115 [facility] ([place]) Comment on above: Performed By: #### C KMBM, CKMB #### [address] [address] #### CMP, GFR #### [address] [address] Potassium [Moles/Vol] 4.2 mmol/L Normal 3.5-5.1 [facility] ([place]) Comment on above: Performed By: #### C KMBM, CKMB #### [address] [address] #### CMP, GFR #### [address] [address] Sodium [Moles/Vol] 139 mmol/L Normal 136-145 [facility] ([place]) Comment on above: Performed By: #### C KMBM, CKMB #### [place] [address] #### CMP, GFR #### [address] [address] Urea nitrogen [Mass/Vol] 13 mg/dL Normal 7-18 [facility] ([place]) Comment on above: Performed By: #### C KMBM, CKMB #### [address] [address] #### CMP, GFR #### [address] [address] CBCon 07-09-2022 Erythrocyte distribution width (RBC) [Ratio] 14.1 % Normal 11.5-14.5 [facility] ([place]) Comment on above: Performed By: #### C KMBM, CKMB #### [place] [address] #### CMP, GFR #### [address] [address] Hematocrit (Bld) [Volume fraction] 45.4 % Normal 42.0-52.0 [facility] ([place]) Comment on above: Performed By: #### C KMBM, CKMB #### [place] [address] #### CMP, GFR #### [address] [address] Hgb 15.5 G/dL Normal 14.0-18.0 [facility] ([place]) Comment on above: Performed By: #### C KMBM, CKMB #### [place] [address] #### CMP, GFR #### [address] [address] MCH (RBC) [Entitic mass] 31.0 pg Normal 27.0-31.2 [facility] ([place]) Comment on above: Performed By: #### C KMBM, CKMB #### [place] [address] #### CMP, GFR #### [place] [address] MCHC 34.1 G/dL Normal 31.8-35.4 [facility] ([place] Comment on above: Performed By: #### C KMBM, CKMB #### [place] [address] #### CMP, GFR #### [address] [address] MCV (RBC) [Entitic vol] 90.7 fL Normal 80.0-94.0 [facility] ([place]) Comment on above: Performed By: #### C KMBM, CKMB #### [place] [address] #### CMP, GFR #### [address] [address] Platelet 301 10 3/mcL Normal 130-400 [facility] ([place]) Comment on above: Performed By: #### C KMBM, CKMB #### [address] [address] #### CMP, GFR #### [address] [address] Platelet mean volume (Bld) [Entitic vol] 8.4 fL Normal 7.4-10.4 [facility] ([place]) Comment on above: Performed By: #### C KMBM, CKMB #### [place] [address] #### CMP, GFR #### [address] [address] RBC 5.01 10 6/mcL Normal 4.04-6.13 [facility] ([place]) Comment on above: Performed By: #### C KMBM, CKMB #### [place] [address] #### CMP, GFR #### [address] [address] WBC 6.4 10 3/mcL Normal 4.6-10.8 [facility] ([place] Comment on above: Performed By: #### C KMBM, CKMB #### [place] [address] #### CMP, GFR #### [address] [address] MGon 07-09-2022 Magnesium [Mass/Vol] 2.1 mg/dL Normal 1.8-2.4 [facility] ([place]) Comment on above: Performed By: #### C KMBM, CKMB #### [address] [address] #### CMP, GFR #### [address] [address] TSHon 07-09-2022 TSH Qn 2.16 m[IU]/L Normal 0.36-3.74 [facility] ([place] Comment on above: Performed By: #### C KMBM, CKMB #### [place] [address] #### CMP, GFR #### [address] [address] .Auto Diffon 06-16-2022 Basophil, Absolute 0.0 10 3/mcL Normal 0.0-0.2 [facility] ([place]) Comment on above: Performed By: #### C KMBM, CKMB #### [place] [address] #### CMP, GFR #### [address] [address] Basophils/100 WBC (Bld) 0.6 % Normal 0.0-2.5 [facility] ([place] Comment on above: Performed By: #### C KMBM, CKMB #### [place] [address] #### CMP, GFR #### [address] [address] Eosinophil, Absolute 0.1 10 3/mcL Normal 0.0-0.4 [facility] [place] Comment on above: Performed By: #### C KMBM, CKMB #### [place] [address] #### CMP, GFR #### [address] [address] Eosinophils/100 WBC (Bld) 1.7 % Normal 0.0-7.0 [facility] ([place] Comment on above: Performed By: #### C KMBM, CKMB #### [place] [address] #### CMP, GFR #### [address] [address] Lymphocyte, Absolute 1.7 10 3/mcL Normal 0.8-3.9 [facility] [place] Comment on above: Performed By: #### C KMBM, CKMB #### [place] [address] #### CMP, GFR #### [address] [address] Lymphocytes/100 WBC (Bld) 25.3 % Normal 10.0-50.0 [facility] ([place]) Comment on above: Performed By: #### C KMBM, CKMB #### [place] [address] #### CMP, GFR #### [address] [address] Monocyte, Absolute 0.6 10 3/mcL Normal 0.2-1.0 [facility] ([place]) Comment on above: Performed By: #### C KMBM, CKMB #### [place] [address] #### CMP, GFR #### [address] [address] Monocytes/100 WBC (Bld) 9.6 % Normal 1.7-13.0 [facility] ([place]) Comment on above: Performed By: #### C KMBM, CKMB #### [place] [address] #### CMP, GFR #### [address] [address] Neutrophils/100 WBC (Bld) 62.8 % Normal 37.0-80.0 [facility] ([place] Comment on above: Performed By: #### C KMBM, CKMB #### [place] [address] #### CMP, GFR #### [address] [address] .GFRon 06-16-2022 GFR 86 ml/min/1.73sqm Normal [facility] ([place]) Comment on above: Result Comment: GFR Population mean for , Non- Americans Ages 20-29 = 116 mL/min/1.73 sq.m. Ages 30-39 = 107 mL/min/1.73 sq.m. Ages 40-49 = 99 mL/min/1.73 sq.m. Ages 50-59 = 93 mL/min/1.73 sq.m. Ages 60-69 = 85 mL/min/1.73 sq.m. Ages 70+ = 75 mL/min/1.73 sq.m. Chronic Kidney Disease: Less than 60 mL/min/1.73 square meters End Stage Renal Disease: Less than 15 mL/min/1.73 square meters Performed By: #### C KMBM, CKMB #### [place] [address] #### CMP, GFR #### [address] [address] GFR Non- 71 ml/min/1.73sqm Normal [facility] ([place]) Comment on above: Result Comment: GFR Population mean for , Non- Americans Ages 20-29 = 116 mL/min/1.73 sq.m. Ages 30-39 = 107 mL/min/1.73 sq.m. Ages 40-49 = 99 mL/min/1.73 sq.m. Ages 50-59 = 93 mL/min/1.73 sq.m. Ages 60-69 = 85 mL/min/1.73 sq.m. Ages 70+ = 75 mL/min/1.73 sq.m. Chronic Kidney Disease: Less than 60 mL/min/1.73 square meters End Stage Renal Disease: Less than 15 mL/min/1.73 square meters Performed By: #### C KMBM, CKMB #### [place] [address] #### CMP, GFR #### [address] [address] .MDWon 06-16-2022 Monocyte Distribution Width Not performed Normal 0.00-20.00 [facility] ([place]) Comment on above: Result Comment: MDW testing performed only on adult ER patients between the ages of 18-89 years. Performed By: #### C KMBM, CKMB #### [place] [address] #### CMP, GFR #### [address] [address] .NEUABSon 06-16-2022 Neutrophil, Absolute 4.2 10 3/mcL Normal 2.9-6.2 [facility] [place] Comment on above: Performed By: #### C KMBM, CKMB #### [place] [address] #### CMP, GFR #### [place] [id number] CBCon 06-16-2022 Erythrocyte distribution width (RBC) [Ratio] 14.2 % Normal 11.5-14.5 [facility] ([place]) Comment on above: Performed By: #### C KMBM, CKMB #### [place] [address] #### CMP, GFR #### [place] [address] Hematocrit (Bld) [Volume fraction] 45.0 % Normal 42.0-52.0 [facility] ([place]) Comment on above: Performed By: #### C KMBM, CKMB #### [place] [address] #### CMP, GFR #### [place] [address] Hgb 15.6 G/dL Normal 14.0-18.0 [facility] ([place]) Comment on above: Performed By: #### C KMBM, CKMB #### [place] [address] #### CMP, GFR #### [place] [address] MCH (RBC) [Entitic mass] 31.4 pg High 27.0-31.2 [facility] ([place]) Comment on above: Performed By: #### C KMBM, CKMB #### [place] [address] #### CMP, GFR #### [place] [address] MCHC 34.7 G/dL Normal 31.8-35.4 [facility] ([place]) Comment on above: Performed By: #### C KMBM, CKMB #### [place] [address] #### CMP, GFR #### [address] [address] MCV (RBC) [Entitic vol] 90.5 fL Normal 80.0-94.0 [facility] ([place]) Comment on above: Performed By: #### C KMBM, CKMB #### [place] [address] #### CMP, GFR #### [address] [address] Platelet 321 10 3/mcL Normal 130-400 [facility] ([place]) Comment on above: Performed By: #### C KMBM, CKMB #### [place] [address] #### CMP, GFR #### [address] [address] Platelet mean volume (Bld) [Entitic vol] 8.1 fL Normal 7.4-10.4 [facility] ([place] Comment on above: Performed By: #### C KMBM, CKMB #### [place] [address] #### CMP, GFR #### [address] [address] RBC 4.97 10 6/mcL Normal 4.04-6.13 [facility] ([place]) Comment on above: Performed By: #### C KMBM, CKMB #### [place] [address] #### CMP, GFR #### [address] [address] WBC 6.6 10 3/mcL Normal 4.6-10.8 [facility] ([place] Comment on above: Performed By: #### C KMBM, CKMB #### [place] [address] #### CMP, GFR #### [address] [address] CMPon 06-16-2022 Albumin Level 3.7 G/dL Normal 3.4-4.8 [facility] ([place]) Comment on above: Performed By: #### C KMBM, CKMB #### [place] [address] #### CMP, GFR #### [address] [address] Albumin/Globulin [Mass ratio] 1.1 {ratio} Normal 1.1-2.5 [facility] ([place]) Comment on above: Performed By: #### C KMBM, CKMB #### [place] [address] #### CMP, GFR #### [address] [address] ALP [Catalytic activity/Vol] 105 U/L Normal 40-135 [facility] ([place]) Comment on above: Performed By: #### C KMBM, CKMB #### [place] [address] #### CMP, GFR #### [address] [address] ALT [Catalytic activity/Vol] 52 U/L Normal 16-63 [facility] ([place]) Comment on above: Performed By: #### C KMBM, CKMB #### [place] [address] #### CMP, GFR #### [address] [address] AST [Catalytic activity/Vol] 22 U/L Normal 10-40 [facility] ([place]) Comment on above: Performed By: #### C KMBM, CKMB #### [place] [address] #### CMP, GFR #### [address] [address] Bili Total 0.6 mg/dL Normal 0.2-1.0 [facility] ([place]) Comment on above: Result Comment: Use of this assay is not recommended for patients undergoing treatment with eltrombopag due to the potential for falsely elevated results. Performed By: #### C KMBM, CKMB #### [place] [address] #### CMP, GFR #### [address] [address] BUN/Creatinine Ratio 13 ratio Normal 7-27 [facility] ([place]) Comment on above: Performed By: #### C KMBM, CKMB #### [place] [address] #### CMP, GFR #### [address] [address] Calcium [Mass/Vol] 8.9 mg/dL Normal 8.4-10.2 [facility] ([place]) Comment on above: Performed By: #### C KMBM, CKMB #### [place] [address] #### CMP, GFR #### [address] [address] Chloride [Moles/Vol] 102 mmol/L Normal 98-107 [facility] ([place]) Comment on above: Performed By: #### C KMBM, CKMB #### [place] [address] #### CMP, GFR #### [address] [address] CO2 [Moles/Vol] 30 mmol/L Normal 23-31 [facility] ([place]) Comment on above: Performed By: #### C KMBM, CKMB #### [place] [address] #### CMP, GFR #### [address] [address] Creatinine [Mass/Vol] 1.05 mg/dL Normal 0.70-1.30 [facility] ([place]) Comment on above: Performed By: #### C KMBM, CKMB #### [address] [address] #### CMP, GFR #### [address] [address] Electrolyte Balance 9.0 mEq/L Normal 4.0-15.0 [facility] ([place]) Comment on above: Performed By: #### C KMBM, CKMB #### [place] [address] #### CMP, GFR #### [address] [address] Globulin 3.3 G/dL Normal [facility] ([place]) Comment on above: Performed By: #### C KMBM, CKMB #### [place] [address] #### CMP, GFR #### [address] [address] Glucose [Mass/Vol] 100 mg/dL Normal 80-115 [facility] ([place]) Comment on above: Performed By: #### C KMBM, CKMB #### [place] [address] #### CMP, GFR #### [address] [address] Potassium [Moles/Vol] 4.6 mmol/L Normal 3.5-5.1 [facility] ([place]) Comment on above: Performed By: #### C KMBM, CKMB #### [place] [address] #### CMP, GFR #### [address] [address] Sodium [Moles/Vol] 141 mmol/L Normal 136-145 [facility] ([place]) Comment on above: Performed By: #### C KMBM, CKMB #### [address] [address] #### CMP, GFR #### [address] [address] Total Protein 7.0 G/dL Normal 6.4-8.2 [facility] ([place]) Comment on above: Performed By: #### C KMBM, CKMB #### [place] [address] #### CMP, GFR #### [address] [address] Urea nitrogen [Mass/Vol] 14 mg/dL Normal 7-18 [facility] ([place]) Comment on above: Performed By: #### C KMBM, CKMB #### [place] [address] #### CMP, GFR #### [place] [address] HCVon 06-16-2022 Hep C Ab Non-Reactive Normal Non-Reactive [facility] ([place]) Comment on above: Performed By: #### C KMBM, CKMB #### [place] [address] #### CMP, GFR #### [place] [address] Hep C Ab Int Normal [facility] ([place]) Comment on above: Result Comment: Nonr eactive: Samples with a value < 0.80 are considered nonreactive (negative) for antibodies to HCV. A negative test result does not exclude the possibility of exposure to or infection with HCV. HCV antibodies may be undetectable in some stages of the infection and in some clinical conditions. See Interp Performed By: #### C KMBM, CKMB #### [place] [address] #### CMP, GFR #### [place] [address] LABORATORYOrdered By: Armida Alonzo on 06-16-2022 Albumin BCP dye [Mass/Vol] 3.7 G/dL Invalid Interpretation Code 3.4 - 4.8 G/dL AO ADM SS Albumin/Globulin [Mass ratio] 1.1 {ratio} Invalid Interpretation Code 1.1 - 2.5 ratio AO ADM SS ALP [Catalytic activity/Vol] 105 U/L Invalid Interpretation Code 40 - 135 U/L AO ADM SS ALT With P-5'-P [Catalytic activity/Vol] 52 U/L Invalid Interpretation Code 16 - 63 U/L AO ADM SS AST With P-5'-P [Catalytic activity/Vol] 22 U/L Invalid Interpretation Code 10 - 40 U/L AO ADM SS Bilirubin [Mass/Vol] 0.6 mg/dL Invalid Interpretation Code 0.2 - 1.0 mg/dL AO ADM SS Calcium [Mass/Vol] 8.9 mg/dL Invalid Interpretation Code 8.4 - 10.2 mg/dL AO ADM SS Chloride [Moles/Vol] 102 mmol/L Invalid Interpretation Code 98 - 107 mmol/L AO ADM SS Cholesterol [Mass/Vol] 210 mg/dL Invalid Interpretation Code 0 - 200 mg/dL AO ADM SS Cholesterol in HDL [Mass/Vol] 43 mg/dL Invalid Interpretation Code 40 - 60 mg/dL AO ADM SS Cholesterol in LDL [Mass/Vol] 139 mg/dL Invalid Interpretation Code 0 - 130 mg/dL AO ADM SS CO2 [Moles/Vol] 30 mmol/L Invalid Interpretation Code 23 - 31 mmol/L AO ADM SS Creatinine [Mass/Vol] 1.05 mg/dL Invalid Interpretation Code 0.70 - 1.30 mg/dL AO ADM SS Electrolyte Balance 9.0 mEq/L Invalid Interpretation Code 4.0 - 15.0 mEq/L AO ADM SS Globulin 3.3 G/dL Invalid Interpretation Code AO ADM SS Glucose [Mass/Vol] 100 mg/dL Invalid Interpretation Code 80 - 115 mg/dL AO ADM SS Potassium [Moles/Vol] 4.6 mmol/L Invalid Interpretation Code 3.5 - 5.1 mmol/L AO ADM SS Prostate specific Ag [Mass/Vol] 0.16 ng/mL Invalid Interpretation Code 0.00 - 4.00 ng/mL AO ADM SS Protein [Mass/Vol] 7.0 G/dL Invalid Interpretation Code 6.4 - 8.2 G/dL AO ADM SS Sodium [Moles/Vol] 141 mmol/L Invalid Interpretation Code 136 - 145 mmol/L AO ADM SS Triglyceride [Mass/Vol] 140 mg/dL Invalid Interpretation Code 0 - 150 mg/dL AO ADM SS Urea nitrogen [Mass/Vol] 14 mg/dL Invalid Interpretation Code 7 - 18 mg/dL AO ADM SS Urea nitrogen/Creatinine [Mass ratio] 13 ratio Invalid Interpretation Code 7 - 27 ratio AO ADM SS LABORATORYOrdered By: Simi Murray on 06-16-2022 Basophil, Absolute 0.0 103/mcL Invalid Interpretation Code 0.0 - 0.2 10^3/mcL AO Workflow SS Basophils/100 WBC (Bld) 0.6 % Invalid Interpretation Code 0.0 - 2.5 % AO Workflow SS Eosinophil, Absolute 0.1 103/mcL Invalid Interpretation Code 0.0 - 0.4 10^3/mcL AO Workflow SS Eosinophils/100 WBC (Bld) 1.7 % Invalid Interpretation Code 0.0 - 7.0 % AO Workflow SS Erythrocyte distribution width (RBC) [Ratio] 14.2 % Invalid Interpretation Code 11.5 - 14.5 % AO Workflow SS Hematocrit (Bld) [Volume fraction] 45.0 % Invalid Interpretation Code 42.0 - 52.0 % AO Workflow SS Hemoglobin (Bld) [Mass/Vol] 15.6 G/dL Invalid Interpretation Code 14.0 - 18.0 G/dL AO Workflow SS Lymphocyte, Absolute 1.7 103/mcL Invalid Interpretation Code 0.8 - 3.9 10^3/mcL AO Workflow SS Lymphocytes/100 WBC (Bld) 25.3 % Invalid Interpretation Code 10.0 - 50.0 % AO Workflow SS MCH (RBC) [Entitic mass] 31.4 pg Invalid Interpretation Code 27.0 - 31.2 pg AO Workflow SS MCHC 34.7 G/dL Invalid Interpretation Code 31.8 - 35.4 G/dL AO Workflow SS MCV (RBC) [Entitic vol] 90.5 fL Invalid Interpretation Code 80.0 - 94.0 fL AO Workflow SS Monocyte, Absolute 0.6 103/mcL Invalid Interpretation Code 0.2 - 1.0 10^3/mcL AO Workflow SS Monocytes/100 WBC (Bld) 9.6 % Invalid Interpretation Code 1.7 - 13.0 % AO Workflow SS Neutrophil, Absolute 4.2 103/mcL Invalid Interpretation Code 2.9 - 6.2 10^3/mcL AO Workflow SS Neutrophils/100 WBC (Bld) 62.8 % Invalid Interpretation Code 37.0 - 80.0 % AO Workflow SS Platelet mean volume (Bld) [Entitic vol] 8.1 fL Invalid Interpretation Code 7.4 - 10.4 fL AO Workflow SS Platelets (Bld) [#/Vol] 321 103/mcL Invalid Interpretation Code 130 - 400 10^3/mcL AO Workflow SS RBC (Bld) [#/Vol] 4.97 106/mcL Invalid Interpretation Code 4.04 - 6.13 10^6/mcL AO Workflow SS WBC 6.6 103/mcL Invalid Interpretation Code 4.6 - 10.8 10^3/mcL AO Workflow SS LABORATORYOrdered By: SYSTEM SYSTEM on 06-16-2022 GFR 86 ml/min/1.73sqm Invalid Interpretation Code AO Chemistry S GFR Non- 71 ml/min/1.73sqm Invalid Interpretation Code AO Chemistry S Monocyte distribution width Auto (Bld) [Entitic vol] Not Performed 1 *NA* (06/16/22 8:32 AM) Invalid Interpretation Code 0.00 - 20.00 AO Hematology S Comment on above: Result Comment: MDW testing performed only on adult ER patients between the ages of 18-89 years. LABORATORYOrdered By: Parvez Quijano on 06-16-2022 Hep C Ab Non-Reactive (06/16/22 8:32 AM) Invalid Interpretation Code Non-Reactive AH ADM SS Hep C Ab Int Nonreactive: Samples with a value < 0.80 are considered nonreactive (negative) for antibodies to HCV.A negative test result does not exclude the possibility of exposure to or infection with HCV. HCV antibodies may be undetectable in some stages of the infection and in some clinical conditions. Invalid Interpretation Code AH Chemistry S LIPIDon 06-16-2022 Cholesterol [Mass/Vol] 210 mg/dL High 0-200 [facility] ([place]) Comment on above: Result Comment: Chol esterol Reference Interval: Less than 200 Desirable 200-239 Borderline high risk 240 and above High risk Performed By: #### C HARLEEN CKMB #### [place] [address] #### CMP, GFR #### [address] [address] Cholesterol in HDL [Mass/Vol] 43 mg/dL Normal 40-60 [facility] ([place] Comment on above: Performed By: #### C HARLEEN, CKMB #### [address] [address] #### CMP, GFR #### [address] [address] Cholesterol in LDL [Mass/Vol] 139 mg/dL High 0-130 [facility] ([place] Comment on above: Performed By: #### C KMBM, CKMB #### [address] [address] #### CMP, GFR #### [address] [address] Triglyceride [Mass/Vol] 140 mg/dL Normal 0-150 [facility] ([place] Comment on above: Result Comment: Trig lyceride Reference Interval: Less than 150 Normal 150-199 Borderline high risk 200-499 High risk 500 or higher Very high risk Performed By: #### C KMBM, CKMB #### [place] [address] #### CMP, GFR #### [address] [address] PSAon 06-16-2022 Prostate Specific Antigen 0.16 ng/mL Normal 0.00-4.00 [facility] ([place]) Comment on above: Performed By: #### C KMBM, CKMB #### [place] [address] #### CMP, GFR #### [address] [address] Vital Signs Date Time Vital Sign Value Performing Clinician Facility 05-31-2025 10:42-0400 Body height 172.72 cm Rosie Clark SENIOR STRATEGY MANAGER-C Work Phone: [facility] 05-31-2025 10:42-0400 Body mass index (BMI) [Ratio] 32.8 kg/m2 Rosie Amber SENIOR STRATEGY MANAGER-C Work Phone: [facility] 05-31-2025 10:42-0400 Body weight 97.97 kg Rosie Clark SENIOR STRATEGY MANAGER-C Work Phone: [facility] 05-31-2025 10:42-0400 Diastolic blood pressure 78 mm[Hg] Rosie Clark SENIOR STRATEGY MANAGER-C Work Phone: [facility] 05-31-2025 10:42-0400 Heart rate 54 /min Rosie Clark SENIOR STRATEGY MANAGER-C Work Phone: [facility] 05-31-2025 10:42-0400 Respiratory rate 16 /min Rosie Clark SENIOR STRATEGY MANAGER-C Work Phone: [facility] 05-31-2025 10:42-0400 Systolic blood pressure 105 mm[Hg] Rosie Clark SENIOR STRATEGY MANAGER-C Work Phone: [facility] 05-31-2023 01:25-0400 Body height 172.[address] RUBY LEWIS MD [place] 05-31-2023 01:25-0400 Body temperature 98.06 [degF] DR RUBY LEWIS MD [place] 05-31-2023 01:25-0400 Body weight 95.[address] RUBY LEWIS MD [place] 05-31-2023 01:25-0400 Diastolic Blood Pressure Non-Invasive [address] RUBY LEWIS MD [place] 05-31-2023 01:25-0400 Heart rate 65 /min DR RUBY LEWIS MD [place] 05-31-2023 01:25-0400 Respiratory rate 18 /min DR RUBY LEWIS MD [place] 05-31-2023 01:25-0400 Systolic Blood Pressure Non-Invasive [address] RUBY LEWIS MD [place] 08-16-2022 06:40-0400 Body temperature 98.24 [degF] TYLER GARCIA DO [place] 08-16-2022 06:40-0400 Diastolic blood pressure 84 mm[Hg] TYLER GARCIA DO [place] 08-16-2022 06:40-0400 Heart rate 60 /min TYLER GARCIA DO [place] 08-16-2022 06:40-0400 Respiratory rate 18 /min TYLER GARCIA DO [place] 08-16-2022 06:40-0400 Systolic blood pressure 142 mm[Hg] TYLER GARCIA DO [place] 08-16-2022 04:24-0400 Body height 175.3 cm TYLER GARCIA DO [place] 08-16-2022 04:24-0400 Body temperature 97.88 [degF] TYLER GARCIA DO [place] 08-16-2022 04:24-0400 Body weight 100 kg TYLER GARCIA DO [place] 08-16-2022 04:24-0400 Diastolic blood pressure 104 mm[Hg] TYLER GARCIA DO [place] 08-16-2022 04:24-0400 Heart rate 63 /min TYLER GARCIA DO [place] 08-16-2022 04:24-0400 Respiratory rate 20 /min TYLER GARCIA DO [place] 08-16-2022 04:24-0400 Systolic blood pressure 197 mm[Hg] TYLER GARCIA DO [place] Encounters Encounter Date Encounter Type Care Provider Facility Start: 06-07-2025 ambulatory Donis Vinson Facility:[facility] Start: 05-31-2025 End: 05-31-[address] Donis Vinson MD -[facility] Work Phone: Start: 05-31-2025 End: 05-31-2025 ambulatory Rosie ESPINOSA Work Phone: -[facility] Start: 04-30-2025 End: 04-30-2025 Patient encounter procedure [facility] Provider [facility] Department Start: 04-29-2025 End: 04-30-2025 Telephone encounter Arturo Moreno RN [facility] Cardiology Start: 03-29-2025 End: 03-29-2025 Transcribe Orders Tigist Lopez MD Work Phone: [facility] Cardiology Comment on above: Precordial pain (Catarina ashwini Dx) Precordial pain [R07 .2] Start: 07-12-2024 End: 07-12-2024 ambulatory CAS BARAKAT Facility:[facility] Start: 07-12-2024 End: 07-12-2024 Patient encounter procedure Cas Barakat MD Work Phone: Ophthalmology Comment on above: Bullous keratopathy, bilateral (Primary Dx); Other hereditary corneal dystrophies, bilateral; 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; Pseudophakia; Monocular esotropia, left eye Start: 05-31-2023 End: 06-05-2023 ambulatory IVAN BROWN DO Facility:[facility] Start: 05-31-2023 End: 06-05-2023 Encounter for general adult medical examination without abnormal findings IVAN BROWN DO Facility:[facility] Start: 05-31-2023 End: 05-31-2023 Emergency department patient visit DR RUBY LEWIS MD Facility:[facility] Start: 05-31-2023 End: 05-31-2023 Emergency department patient visit DR RUBY LEWIS MD [facility] Start: 08-16-2022 End: 08-16-2022 Emergency department patient visit TYLER GARCIA DO Facility:[facility] Start: 08-16-2022 End: 08-16-2022 Emergency department patient visit TYLER GARCIA DO [place] Start: 07-30-2022 End: 07-31-2022 ambulatory ERIC MENDOSA FLARE WORKER-ADJUNCT SOCIOLOGY PROFESSOR Facility:[facility] Start: 07-30-2022 End: 07-30-2022 Patient encounter procedure ERIC Frias NAVYA FLARE WORKER-ADJUNCT SOCIOLOGY PROFESSOR [place] Start: 07-09-2022 End: 07-10-2022 ambulatory ERIC Frias NAVYA FLARE WORKER-ADJUNCT SOCIOLOGY PROFESSOR Facility:[facility] Start: 06-16-2022 End: 06-17-2022 ambulatory IVAN Angela STEPHANIE OVALLES Facility:[facility] Start: 06-16-2022 End: 06-16-2022 Patient encounter procedure IVAN BROWN DO [facility] Procedures Date Procedure Procedure Detail Performing Clinician Start: 03-29-2025 Cv strs tst xers&/or rx cont ecg trcg only Tigist Lopez MD Work Phone: Start: 07-12-2024 Computerized corneal topography uni/bi Cas Barakat MD Work Phone: Start: 07-12-2024 Cmptr ophthalmic dx img ant segmt w/i&r uni/bi Cas Barakat MD Work Phone: Plan of Treatment Date Care Activity Detail Author Start: 2032 RSV Vaccine (1 - 1-d ose 75+ series) RSV Vaccine (1 - 1-dose 75+ series) [facility] Start: 06-15-2032 Urine microalbumin profile DTaP,Tdap,Td Vaccine (2 - Td or Tdap) [facility] Start: 11-05-2025 End: 11-05-2025 Patient encounter procedure 11/05/2025 1:00 PM EST Office Visit Card Intervention Tiffany [address] [address] John Rodrigues MD [address] [address] New patient Card Intervention Tiffany Comment on above: New patient Start: 07-01-2025 Influenza vaccination [facility] Start: 06-21-2025 Screening for malign ant neoplasm of colon [facility] Start: 05-31-2025 Evaluation of diagnostic study results [facility] Start: 10-31-2024 Advance Directive Discussion Advance Directive Discussion [facility] Start: 10-31-2024 Medicare Advantage Annual Wellness Visit Medicare Advantage Annual Wellness Visit [facility] Start: 07-01-2024 Covid-19 Vaccine ( season) Covid-19 Vaccine () [facility] Start: 07-01-2024 Covid-19 Vaccine () Covid-19 Vaccine () [facility] Start: 07-01-2024 Influenza vaccination Influenza Vacc ine (#1) [facility] Start: 10-31-2023 Advance Directive Discussion Advance Directive Discussion [facility] Start: 2022 Pneumococcal Vaccine : 65+ (1 of 1 - PCV) Pneumococcal Vaccine: 65+ (1 of 1 - PCV) [facility] Start: 2017 RSV Vaccine (1 - 1-d ose 60+ series) RSV Vaccine (1 - 1-dose 60+ series) [facility] Start: 2012 Prostate specific antigen measurement Prostate Cancer Screening Discussion [facility] Start: 2007 Pneumococcal Vaccine : 50+ (1 of 1 - PCV) Pneumococcal Vaccine: 50+ (1 of 1 - PCV) [facility] Start: 2007 Shingrix Vaccine (1 of 2) Shingrix Vaccine (1 of 2) [facility] Start: 2002 Diabetes Screening Diabetes Screenin g [facility] Start: 2002 Prostate specific antigen measurement Prostate Cancer Screening Discussion [facility] Start: 2002 Screening for malign ant neoplasm of colon [facility] Start: 1992 Lipid panel Lipid Screening [facility] Start: 1975 Anxiety Screening Anxiety Screening [facility] Start: 1975 Depression Screening Depression Scre ening [facility] Start: 1975 Hepatitis C screening Hepatitis C Sc rosendo [facility] Start: 1957 Abdominal aortic aneurysm screening Abdominal Aortic Aneurysm Screening [facility] Ambulatory ECG [facility] Immunizations Immunization Date Immunization Notes Care Provider Estrella short 06-15-2022 tetanus toxoid, redu eladia diphtheria toxoid, and acellular pertussis vaccine, adsorbed; Translations: [Boostrix (Tdap)] IVAN BROWN DO [facility] Payers Date Payer Category Payer Self-pay 2024 Medicare HUMANA MEDICARE HUMANA GOLD PLUS [id number] 2024-Present [phone] [address] [address] [place] [address] O [id number] 2024 Medicare (Managed Care) HUMANA G OLD PLUS [id number] 2023 Private Health Insurance [id number] 2022 Unknown [id number] 1955 Unknown [id number] 1957 Unknown [id number] 1957 Unknown [id number] 1957 Unknown [id number] 1957 Unknown [id number] 1957 Unknown [id number] Unknown [id number] Unknown [id number] Social History Date Type Detail Facility Start: 09-01-2020 Tobacco smoking status Never s moked tobacco (finding) [facility] Sex Assigned At Sex [facility] Start: 07-12-2024 End: 05-20-2025 Tobacco smoking status NHIS Ex-smoker [facility] History of tobacco use Current smoker [facility] History of tobacco use Cigarette Smoker [facility] Start: 07-12-2024 Tobacco use and exposure Former smokeless tobacco user [facility] Start: 07-12-2024 Alcoholic beverage intake Ex-drinker (finding) [facility] Start: 07-12-2024 End: 03-29-2025 History of Social function [facility] Start: 07-12-2024 End: 03-29-2025 Tobacco use panel [facility] National Score (1-10 0), lower number is lower risk 51 [facility] Start: 1955 Sex assigned at Not on file [facility] Start: 1955 Sex Assigned At Male [facility] Functional Status Date Assessment Result Facility 05-31-2023 Functional Status Ambulating in figueroa, Ambulating in room, Awake [place] 08-16-2022 Functional Status Up ad vicente [facility] Mental Status Date Assessment Result Facility 05-31-2023 Mental Status Oriented x 4 [facility] 08-16-2022 Mental Status Orientation Oriented x 4 [facility] 08-16-2022 Mental Status [facility] Clinical Notes 08-16-2022 to 05-31-2025 Note Date & Type Note Facility 05-31-2025 Progress note [facility] 05-31-2025 Progress note Note Date/Time May 31, 2025 11:11am [facility] [address] [place] [address] OFFICE VISIT Date of Service: 05/31/25 MR#: [id number] Acct: [id number] Name: ALDA GARCIA Rep #: [id number] : 1955 Provider: Dr. Heather Vinson MD Age/Sex: 69/M Location[place] [facility] Status: Signed HPI HPI History of Present Illness Details: 69-year-old man with no previous cardiac history who presented to his primary care physician complaining of palpitations. This has been going on for a few months. He says that sometimes is associated with sharp chest discomfort. In February he underwent a stress test where he exercised to 6.2 metabolic equivalents with no EKG changes suggestive of ischemia the peak blood pressure was acceptable at 163/88 mmHg. He went on to have a 12-day Zio patch performed his minimum heart rate was 49 bpm and average heart rate of 72 bpm and a maximum heart rate of 221 bpm which was an episode of atrial fibrillation. He did have 94 beats of supraventricular tachycardia with the longest lasting 15 seconds at an average heart rate of 100 bpm. Isolated premature ventricular and atrial complexes were also noted. Since that time he was put on a beta-richmond with Toprol-XL 25 mg a day which he is tolerating. He still has some shortness of breath with activity. His lipid profile had demonstrated total cholesterol 202 HDL 49 LDL 129. His physical exam here is unremarkable his electrocardiogram demonstrates sinus bradycardia with a rate of 53 bpm and poor R wave progression. He is quite vague about the chest discomfort though he says that the palpitations generally wake him up at night. Intake Vital Signs 05/31/25 10:42 Height 5 ft 8 in Weight: 216 lb BMI 32.8 BP 105/78 Blood Pressure Location Lt brachial Position Sitting Respiration 16 Pulse 54 L Pulse Source Monitor Intake Visit Reasons: ABN HOLTER (FEBRUARY) Home Health Rn Required: No Accompanied by: Significant Other Is patient in pain?: No Allergies No Known Allergies Allergy (Unverified 05/31/25 10:40) Medications ?Medication ?Instructions ?Recorded ?Confirmed ?Type famotidine 40 mg tablet 40 mg PO QDAY 05/20/2505/31 History metoprolol succinate 25 mg 25 mg PO QDAY 05/20/2511/24 History tablet,extended release 24 hr omega-3s 360 ge-dsh-zkw-fish oil 1 cap PO TID 05/20/25 05/31/25 History 1,200 mg-D3 1,000 unit capsule (Fish Oil-Vit D3) apixaban 5 mg tablet (Eliquis) 5 mg PO BID #60 tabs 05/31/25 Rx omeprazole 20 mg capsule,delayed 20 mg PO QPM 05/31/25 05/31/25 History release Have you fallen in the past year?: No PFSH Medical History PVC (premature ventricular contraction) Renal calculi ASCVD (arteriosclerotic cardiovascular disease) GERD (gastroesophageal reflux disease) Abnormal stress test Atrial fibrillation Abnormal Holter monitor finding Surgical History History of intraocular lens implant Family History Father Diabetes Mother Thyroid disorder Social History Smoking Status: Former smoker alcohol intake: never substance use type: does not use ROS Const Const: Positive for fatigue, weakness and difficulty sleeping; Negative for headache(s) or daytime sleepiness ENT ENT: Positive for dizziness; Negative for headache(s) or Nosebleed/epistaxis Cardio Chest Pain: Yes Frequency: other (mostly at night) Character: other (racing HR) Onset: at rest Location: left chest Duration: continuous Exacerbation: rest Recurrence: rest Palpitations: Yes feels like its: fast Edema: None Resp Respiratory: Positive for SOB with activity; Negative for SOB at rest, SOB orthopnea\SOB lying down or Cough GI GI: Positive for nausea and heartburn; Negative vomiting Neuro Neuro: Positive for dizziness, near syncope and weakness; Negative for lightheadedness or headache(s) Endo Endo: Positive for fatigue Cardiology Exam Const Appearance: cooperative, healthy appearing, no acute distress, well developed and well groomed Nutritional Appearance: average body habitus and well nourished Orientation: alert, awake and oriented x3 Head Head: normal to inspection, normocephalic and atraumatic Ears: hearing grossly normal bilaterally and external ears normal Nose: external nose normal, nares normal, nasal mucous membranes and turbinates normal, septum normal and no nasal discharge Face and Sinus: face symmetric Mouth: oral mucosae normal, tongue normal, oropharynx normal and moist mucous membranes Teeth and gingiva: dentition normal Throat: posterior oropharynx normal, tonsils normal and uvula midline Eyes General: appearance normal, both eyes and all related structures Eyelids: eyelids normal Conjunctivae: conjunctivae normal Pupils: PERRL, normal by confrontation and accommodation normal EOM: EOM intact bilaterally Neck Neck: normal visual inspection, trachea midline and no JVD JVD: +5 Carotids: normal carotid upstroke and bounding pulses Chest Chest inspection: normal inspection of the chest, symmetric chest movement and normal respiratory effort Auscultation: Bilateral: Clear to Auscultation Cardio Palpation: normal PMI Rate: regular rate Rhythm: regular rhythm Heart sounds: S1 normal, S2 normal and normal, physiologic split S2; Negative rub, gallop or murmur GI GI: normal to inspection, soft, no hepatosplenomegaly and bowel sounds present Neuro General: patient alert, patient awake, patient oriented x3, gait normal, moves all extremities and no focal sensory deficit Skin Skin: no rashes or lesions noted Extremities Pulses: Normal: Right Femoral Pulse, Left Femoral Pulse, Right Dorsalis Pedis Pulse, Left Dorsalis Pedis Pulse, Right Posterior Tibial Pulse, Left Posterior Tibial Pulse, Right Radial Pulse and Left Radial Pulse Lower Extremity Edema: None: Bilateral Musculoskel Musculoskeletal: No joint tenderness Psych Psychological: normal affect Supplemental Info Supplemental Information Stress Test 03/29/25 ([facility]) Summary Patient's resting heart rate was 54 bpm and BP was 142/76mmHg. The patient exercised according to the Justin protocol. The estimated end-exercise MET level achieved using the FRIEND equation was 6.2. The estimated end-exercise MET levelachieved using the previous ACSM equation was 7.0. The test was terminated due to general fatigue and the total exercise time was 6 minutes and 9 seconds. Other symptoms during the test was SOB. The max HR was 130 bpm. Peak BP was 163/88 mmHg. The double product achieved was [address]. 14 Day Monitor 04/11/25 Findings Patient had a min HR of 49 bpm, max HR of 221 bpm, and avg HR of 72 bpm. Predominant underlying rhythm was Sinus Rhythm. 94 Supraventricular Tachycardia runs occurred, the run with the fastest interval lasting 5 beats wtih a max rateof 200 bpm, the longest lasting 15.1 seconds with an avg rate of 100 bpm. Atrialfibrillation occurred (2% burden), ranging from 69-221 bpm (avg 145 bpm), the longest lasting 1 hour 18 minutes with an avg rate of 160 bpm. Isolated SVEs were frequent (6.7%). SVE Couplets and triplets were rare (<1%). Isolated VEs, couplets, and triplets were rare (<1%). MD tyrese macias for Rapid Atrial Fibrillation met. Labs: No Data to Display Diagnostics: No Data to Display Pulmonary: No Data to Display Past Visits: Cardiology Visit 05/31/25 Assessment and Plan Assessment and Plan (1) Atrial fibrillation: Status: Acute Plan: He does have supraventricular tachyarrhythmias and atrial fibrillation some of which are short duration. He ideally has a chads Vasc score of 1 but it may be prudent to put him on anticoagulation at this time to see whether he may be a candidate for an ablation. An echocardiogram should be performed to assess his ventricular function. He should continue the beta-richmond with the Toprol-XL 25mg a day at this particular time and then we will start him on Eliquis 5 mg twice a day. Depending on the results of the echocardiogram and how he feels further recommendations will be made. I would also like to repeat a Holter monitor now that he is on the beta-richmond. Thank you for allowing me to participate in the care of your patient. Please don't hesitate to call if any issues arise. Orders: Orders 12 Lead EKG performed by BMS Today I48.91 - Unspecified atrial fibrillation, I49.3 - Ventricular premature depolarization, R94.31 - Abnormal electrocardiogram [ECG] [EKG], R94.39 - Abnormal result of other cardiovascular function study Echo Complete Today I48.91 - Unspecified atrial fibrillation Cardiac Holter Monitor, 48 Hrs 1 Week I48.91 - Unspecified atrial fibrillation Medications: New apixaban (Eliquis) 5 mg PO BID 60 tabs 4RF Discontinued aspirin (Adult Aspirin Regimen) Discontinued Reason: Order Changed 81 mg PO QDAY Plan Details Follow Up: 6 Weeks (sd) Coding Level of Care Code Off vis,new,level 4 Diagnoses Atrial fibrillation I48.91 Coding Level of Care Code Off vis,new,level 4 Diagnoses Atrial fibrillation I48.91 Clinical Quality Measures Falls Risk Screening/Assistive Devices Have you fallen in the past year?: No 05/31/25 1111 <Electronically signed by Donis Santiago> Date _ Donis Vinson MD Cosigner Signature: Date (if applicable) CC: FRANCISCA Clark ~ [place] [employer] Work Phone: [phone]) 778-427707-01-2025 Telephone encounter Note* Telephone Encounter - Brittany Dickerson - 04/30/2025 9:31 AM EDT Scheduled and confirmed appt with patient Brittany Dickerson [facility]07-01-2025 Miscellaneous Notes* Telephone Encounter - Brittany Dickerson - 04/30/2025 9:31 AM EDT Scheduled and confirmed appt with patient Brittany Dickerson * Telephone Encounter - Arturo Moreno RN - 04/29/2025 3:19 PM EDT [facility] and pvc's. Please call to schedule. [facility] Telephone encounter Note * Telephone Encounter - Arturo Moreno RN - 04/29/2025 3:19 PM EDT Referral from [facility] for bradycardia and pvc's. Please call to schedule. Thanks [facility]09-12-2024 NoteDate of Procedure 07/12/2024. Outpatient Admitting Clerk Information Presser Cotton Ginning: ZULEMA. Start time: 10:53 AM. Notes mild edema ou peripheral > central [id number] NoteDate of Procedure 07/12/2024. Astigmatism Right Eye Irregular. Left Eye Irregular.[id number] NoteHNO ID: [id number] Author: CAS BARAKAT MD Service: ? Author Type: Physician Type: Progress Notes Filed: 07/12/2024 12:16 Note Text: Encounter Diagnosis ICD-10-CM 1. 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 Other hereditary corneal dystrophies, bilateral H18.593 CORNEAL TOPOGRAPHY PENTACAM OU (BOTH EYES) OCT ANTERIOR SEGMENT CIRRUS OU (BOTH EYES) 3. 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 Pseudophakia Z96.1 5. Monocular esotropia, left eye H50.012 (H18.593) Other hereditary corneal dystrophies, bilateral (primary encounter diagnosis) (H18.13) Bullous keratopathy, bilateral -Hx of CEIOL OU around 30 years ago, reports was told had dislocated natural lenses and then developed cataracts afterwards -Has ACIOL OU was followed by outside pusher runner since then without much issues -Referred given corneal edema OU and concern for PBK -Exam today with peripheral > central corneal edema OU, OS > OD; centrally appears relatively clear -Some unruptured bullae OS -Pentacam also with peripheral corneal edema OU ; central pachy OD 695, OS 657 -Patient denies any pain, denies any vision changes, is overall happy with stable vision Plan: -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 I have seen and examined this patient. I have discussed the case and the management of this patient's care with the Resident/Fellow, if applicable. I also have reviewed and agree with the assessment and plan as stated above and agree with all of its relevant components. 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 never has 20/20 OD is dominant +LET , likely some amblyopia discussed that vision is borderline for night driving, patient may need to self restrict if any worsening vision otherwise can follow-up 6-12 months discussed option of DSAEK OD likely retain ACIOL for now but could consider explant + yamane if DSAEK needed OS would try to reposition ACIOL out of superior PI but minimal movement at present next visit mrx iop dfe ou ant seg oct ou attempt confocal will call order clerk ou I have confirmed and edited as necessary the relevant ophthalmic history, ROS, and the neuro exam findings as obtained by others. I have seen and examined this patient. I have discussed the case and the management of this patient's care with the Resident/Fellow, if applicable. I also have reviewed and agree with the assessment and plan as stated above and agree with all of its relevant components. Cas Barakat, [facility]09-12-2024 History of Present illness Narrative* Cas Barakat MD - 07/12/2024 11:53 AM EDT Encounter Diagnosis ICD-10-CM 1. 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 Other hereditary corneal dystrophies, bilateral H18.593 CORNEAL TOPOGRAPHY PENTACAM OU (BOTH EYES) OCT ANTERIOR SEGMENT CIRRUS OU (BOTH EYES) 3. 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 Pseudophakia Z96.1 5. Monocular esotropia, left eye H50.012 (H18.593) Other hereditary corneal dystrophies, bilateral (primary encounter diagnosis) (H18.13) Bullous keratopathy, bilateral -Hx of CEIOL OU around 30 years ago, reports was told had dislocated natural lenses and then developed cataracts afterwards -Has ACIOL OU was followed by outside pusher runner since then without much issues -Referred given corneal edema OU and concern for PBK -Exam today with peripheral > central corneal edema OU, OS > OD; centrally appears relativelyclear -Some unruptured bullae OS -Pentacam also with peripheral corneal edema OU ; central pachy OD 695, OS 657 -Patient denies any pain, denies any vision changes, is overall happy with stable vision Plan: -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 I have seen and examined this patient. I have discussed the case and the management of this patient's care with the Resident/Fellow, if applicable. I also have reviewed and agree with the assessment and plan as stated above and agree with all of its relevant components. 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 never has 20/20 OD is dominant +LET , likely some amblyopia discussed that vision is borderline for night driving, patient may need to self restrict if any worsening vision otherwise can follow-up 6-12 months discussed option of DSAEK OD likely retain ACIOL for now but could consider explant + yamane if DSAEK needed OS would try to reposition ACIOL out of superior PI but minimal movement at present next visit mrx iop dfe ou ant seg oct ou attempt confocal will call order clerk ou I have confirmed and edited as necessary the relevant ophthalmic history, ROS, and the neuro exam findings as obtained by others. I have seen and examined this patient. I have discussed the case and the management of this patient's care with the Resident/Fellow, if applicable. I also have reviewed and agree with the assessment and plan as stated above and agree with all of its relevant components. [facility]at [facility] Discharge instructions Patient Education 05/31/2023 01:32:13 Pain, Acute, Uncertain Cause Acute Pain, Uncertain Cause Pain can be caused by many conditions that range from very minor to very serious. In some cases, though, pain comes and goes with no apparent cause. We were not able to find the exact cause for your pain. At this time there is no sign of any serious illness causing your pain. More tests may be needed to determine the cause. In many cases, pain like this goes away by itself. Home care Take any medicines as prescribed. If another medicine was not prescribed for pain, you can take an sfto-dtq-pebaedt pain medicine such as ibuprofen or acetaminophen. Use these as directed on the label. Follow-up care Follow up with your healthcare provider or our staff as directed. When to seek medical advice Call your healthcare provider for any of the following: Pain changes in pattern Pain doesn't lessen or gets worse New symptoms appear Fever of 100.4 F (38 C) or higher, or as directed by your healthcare provider [phone] [employer]. [address] [place] [address]. All rights reserved. This information is not intended as a substitute for professional medical care. Always follow yourhealthcare professional's instructions. Follow Up Care 05/31/2023 01:08:07 With:IVAN BROWN Address: [address] [place] [address] [place] [address]- [phone] Business (1) When:2-4 days Comments:Call the number given to schedule ultrasound for later this morning. Follow-up with your doctor as previously scheduled. [place] 08-01-2023 Note Discharge Instructions Thank you for allowing [facility] to assist you with your healthcare needs. The following is importantdischarge information regarding your hospital visit. Diagnosis from Today's Visit Leg pain Leg pain-swelling What to Do Next Instructions from Your Care Team Discharge ED Outpatient Vascular Lab - Ordered -- Test Requested: venous duplex, Lower extremity, Right, Test Reason: Pain, Mon-Fri 8am-4:30pm: Call [phone] at 7:30am to schedule a same day appointment for testing. Please be aware there may be a short wait time. Post Acute Orders No qualifying data available. You Need to Schedule the Following Appointments Follow Up with IVAN BROWN When Within 2-4 days Why: Call the number given to schedule ultrasound for later this morning. Follow-up with your doctor as previously scheduled. Where: [address] [facility] [place] [address]- [phone] Business (1) Allergies NKA Medications Please ask your primary doctor or pharmacist before taking any other medication not listed, including over the counter drugs, herbal medications, vitamins and or supplements as they may interact withyour home medications. Please take this list to your next doctor s visit. Bring all medications you take, including over the counter medications, herbals and other supplements with you to your doctor s visit. Patients and families are reminded to discard old lists and to update any records with all medication providers or retail pharmacies. Education Materials Acute Pain, Uncertain Cause Pain can be caused by many conditions that range from very minor to very serious. In some cases, though, pain comes and goes with no apparent cause. We were not able to find the exact cause for your pain. At this time there is no sign of any serious illness causing your pain. More tests may be needed to determine the cause. In many cases, pain like this goes away by itself. Home care Take any medicines as prescribed. If another medicine was not prescribed for pain, you can take an txkq-prd-sosyzap pain medicine such as ibuprofen or acetaminophen. Use these as directed on the label. Follow-up care Follow up with your healthcare provider or our staff as directed. When to seek medical advice Call your healthcare provider for any of the following: Pain changes in pattern Pain doesn't lessen or gets worse New symptoms appear Fever of 100.4 F (38 C) or higher, or as directed by your healthcare provider [phone] [employer]. [address] [place] [address], [place] [address]. All rights reserved. This information is not intended as a substitute for professional medical care. Always follow yourhealthcare professional's instructions. Additional Information VACCINATE! IT SAVES LIVES! Members of the community who have not yet received the COVID-19 vaccine and would like to receive it can visit one of [facility] vaccine clinics. There are many vaccine clinic locations within the [facility]. For locations and available times, please visit www.gettheshot.coronavirus.[place].gov/. It is important to note that some COVID mobile vaccine clinics are held outdoors and may be canceled in rainy or stormy conditions. To learn more about pediatric vaccinations (ages 5-11), we invite you to visit the [facility] webpage. [email or web address]/[email or web address]-[email or web address] [email or web address].htmlTo learn more about the COVID-19 vaccine, we invite you to visit the CDC website for a list of frequently asked questions. https://www.cdc.gov/coronavirus/2019-ncov/vaccines/faq.html [facility] Patient Portal Access Instructions: Stay connected with your healthcare team and access your personal medical information anytime with the [facility] Patient Portal. If you would like a full copy of your medical records please contact the [facility] Medical Records Department Tuesday through Tuesday between 8a.m. and 4:30p.m. Please follow the directions below to access the portal: 1.Access the email account you provided upon registration to the hospital.2.Look for an invitation email from [facility].3.Open the email and access the invitation link: Accept Invitation to [facility]4.Fill in the required gibbons to create your account. Sign into [email or web address] with your username and password that you created in the above steps to stay up to date. You can then view a summary of results, a summary of your visits, and the ability to download your summaries to your computer or send the information securely to a physician. Remember that your healthcare information is confidential, so carefully consider who you will allow to register on the [facility] Patient Portal for access to your information. You can also access the [facility] Patient Portal on the [employer]. Simply click on Health Records under [employer] and then click on the [employer] logo. HOW TO SAFELY DISPOSE OF PRESCRIPTION MEDICATIONS Please use one of the following methods to safely dispose of your unused medications. 1.Use a drug disposal kit: the drug disposal pouch allows you to safely discard your old and unuseddrugs. Ask your nurse to give you one when you are discharged.2.Visit a local take-back location: Many local pharmacies and police departments have programs that collect old and unwanted prescriptiondrugs. Call your local pharmacy or go to http://[employer].Jaman/7V9Il0k to find one close to you.3.Make use of household items: Use cat litter or old coffee grounds to dispose medications if other options arenot available. Mix your drugs with these household products, seal them in an airtight container andthrow it into the garbage. Call [facility]: [phone] to be sure your drugs can be disposed of in this way. Some medicines may require a different approach.4.Never flush your medications down the toilet. IF YOU HAVE BEEN PRESCRIBED AN OPIOIDS FOR PAIN If you have been prescribed an opioid (such as hydrocodone, oxycodone or morphine), it is critical to understand the possible side effects and risks of opioid pain medications. Even when taken as directed, opioids can have several side effects including: Tolerance, meaning you might need to take more of a medication for the same pain relief. Nausea, vomiting and/or constipation. Sleepiness, dizziness, dry mouth, confusion, depression or itching. Physical dependence, meaning you have withdrawal symptoms when a medication is stopped ? this can develop within a few days. KNOW YOUR RESPONSIBILITIES It is important to know exactly how much and how often to take the opioid pain medications you are prescribed. Never take opioids in higher amounts or more often than prescribed. Do not combine opioids with alcohol or other drugs that cause drowsiness, such as benzodiazepines, also known as benzos,including diazepam and alprazolam, muscle relaxants or sleep aids. Never sell or share prescriptionopioids. This is illegal. Store opioids in a secure place and out of reach of others (including children, family, friends and visitors). The last page(s) of this document has been signed and retained as a CHART COPY Signatures Patient Education Materials Pain, Acute, Uncertain Cause Medication Leaflets My discharge plan and instructions have been reviewed and explained to me and I,DAVID GARCIA understand my current condition and have read and understand these discharge instructions. I have received a written copy of the plan/instructions. If I have questions, I am aware that I should contact my doctor. Patient/Content Writer Signature: Date/Time: Relationship to Patient: Witness Name/Signature: Date/Time: [place]10-17-2022 Hospital Discharge instructions Patient Education 08/16/2022 06:56:23 Abdominal Pain Abdominal Pain Abdominal pain is pain in the stomach or belly area. Everyone has this pain from time to time. In many cases it goes away on its own. But abdominal pain can sometimes be due to a serious problem, such as appendicitis. So it s important to know when to get help. Causes of abdominal pain There are many possible causes of abdominal pain. Common causes in adults include: Constipation, diarrhea, or gas Stomach acid flowing back up into the esophagus (acid reflux or heartburn) Severe acid reflux, called GERD (gastroesophageal reflux disease) A sore in the lining of the stomach or small intestine (peptic ulcer) Inflammation of the gallbladder, liver, or pancreas Gallstones or kidney stones Appendicitis Intestinal blockage An internal organ pushing through a muscle or other tissue (hernia) Urinary tract infections In women, menstrual cramps, fibroids, ovarian cysts, pelvic inflammatory disease, or endometriosis Inflammation or infection of the intestines, including Crohn's disease and ulcerative colitis Irritable bowel syndrome Diagnosing the cause of abdominal pain Your healthcare provider will give you a physical exam help find the cause of your pain. If needed,you will have tests. Belly pain has many possible causes. So it can be hard to find the reason for your pain. Giving details about your pain can help. Tell your provider where and when you feel the pain, and what makes it better or worse. Also let your provider know if you have other symptoms such as: Fever Tiredness Upset stomach (nausea) Vomiting Changes in bathroom habits Blood in the stool or black, tarry stool Weight loss that you can't explain (involuntary weight loss?) Also report any family history of stomach or intestinal problems, or cancers. Tell your provider about all your alcohol use and drug use. Tell your provider about all medicines you use, including herbs, vitamins, and supplements. Treating abdominal pain Some causes of pain need emergency medical treatment right away. These include appendicitis or a bowel blockage. Other problems can be treated with rest, fluids, or medicines. Your healthcare provider can give you specific instructions for treatment or self-care based on what is causing your pain. If you have vomiting or diarrhea, sip water or other clear fluids. When you are ready to eat solid foods again, start with small amounts of uxnc-kh-ztmnku, low- fat foods. These include apple sauce, toast, or crackers. When to get medical care Call 911 or go to the hospital right away if you: Can t pass stool and are vomiting Are vomiting blood or have bloody diarrhea or black, tarry diarrhea Have chest, neck, or shoulder pain Feel like you might pass out Have pain in your shoulder blades with nausea Have sudden, severe belly pain Have new, severe pain unlike any you have felt before Have a belly that is rigid, hard, and hurts to touch Call your healthcare provider if you have: Pain for more than 5 days Bloating for more than 2 days Diarrhea for more than 5 days A fever of 100.4 F (38 C) or higher, or as directed by your healthcare provider Pain that gets worse Weight loss for no reason Continued lack of appetite Blood in your stool How to prevent abdominal pain Here are some tips to help prevent abdominal pain: Eat smaller amounts of food at each meal. Don't eat greasy, fried, or other high-fat foods. Don't eat foods that give you gas. Exercise regularly. Drink plenty of fluids. To help prevent GERD symptoms: Quit smoking. Reduce alcohol and foods that increase stomach acid. Don't use aspirin or vbvi-kvn-fcvqjnt pain and fever medicines, if possible. This includes nonsteroidal anti-inflammatory drugs (NSAIDs). Lose excess weight. Finish eating at least 2 hours before you go to bed or lie down. Raise the head of your bed. [phone] [employer]. [address] [place] [address], [place] [address]. All rights reserved. This information is not intended as a substitute for professional medical care. Always follow yourhealthcare professional's instructions. Follow Up Care 08/16/2022 04:10:29 With:IVAN BROWN DO Address: [address] [place] [phone]- [phone] When:2-4 days [place] 10-17-2022 Note Discharge Instructions Thank you for allowing [facility] to assist you with your healthcare needs. The following is importantdischarge information regarding your hospital visit. Diagnosis from Today's Visit Abdominal pain What to Do Next Instructions from Your Care Team No qualifying data available. Post Acute Orders No qualifying data available. You Need to Schedule the Following Appointments Follow Up with IVAN BROWN DO When Within 2-4 days Where: [address] [place] [address]- [phone] Allergies NKA Medications Please ask your primary doctor or pharmacist before taking any other medication not listed, including over the counter drugs, herbal medications, vitamins and or supplements as they may interact withyour home medications. Please take this list to your next doctor s visit. Bring all medications you take, including over the counter medications, herbals and other supplements with you to your doctor s visit. Patients and families are reminded to discard old lists and to update any records with all medication providers or retail pharmacies. Education Materials Abdominal Pain Abdominal pain is pain in the stomach or belly area. Everyone has this pain from time to time. In many cases it goes away on its own. But abdominal pain can sometimes be due to a serious problem, such as appendicitis. So it s important to know when to get help. Causes of abdominal pain There are many possible causes of abdominal pain. Common causes in adults include: Constipation, diarrhea, or gas Stomach acid flowing back up into the esophagus (acid reflux or heartburn) Severe acid reflux, called GERD (gastroesophageal reflux disease) A sore in the lining of the stomach or small intestine (peptic ulcer) Inflammation of the gallbladder, liver, or pancreas Gallstones or kidney stones Appendicitis Intestinal blockage An internal organ pushing through a muscle or other tissue (hernia) Urinary tract infections In women, menstrual cramps, fibroids, ovarian cysts, pelvic inflammatory disease, or endometriosis Inflammation or infection of the intestines, including Crohn's disease and ulcerative colitis Irritable bowel syndrome Diagnosing the cause of abdominal pain Your healthcare provider will give you a physical exam help find the cause of your pain. If needed,you will have tests. Belly pain has many possible causes. So it can be hard to find the reason for your pain. Giving details about your pain can help. Tell your provider where and when you feel the pain, and what makes it better or worse. Also let your provider know if you have other symptoms such as: Fever Tiredness Upset stomach (nausea) Vomiting Changes in bathroom habits Blood in the stool or black, tarry stool Weight loss that you can't explain (involuntary weight loss?) Also report any family history of stomach or intestinal problems, or cancers. Tell your provider about all your alcohol use and drug use. Tell your provider about all medicines you use, including herbs, vitamins, and supplements. Treating abdominal pain Some causes of pain need emergency medical treatment right away. These include appendicitis or a bowel blockage. Other problems can be treated with rest, fluids, or medicines. Your healthcare provider can give you specific instructions for treatment or self-care based on what is causing your pain. If you have vomiting or diarrhea, sip water or other clear fluids. When you are ready to eat solid foods again, start with small amounts of ckmz-vk-kzjzgj, low- fat foods. These include apple sauce, toast, or crackers. When to get medical care Call 911 or go to the hospital right away if you: Can t pass stool and are vomiting Are vomiting blood or have bloody diarrhea or black, tarry diarrhea Have chest, neck, or shoulder pain Feel like you might pass out Have pain in your shoulder blades with nausea Have sudden, severe belly pain Have new, severe pain unlike any you have felt before Have a belly that is rigid, hard, and hurts to touch Call your healthcare provider if you have: Pain for more than 5 days Bloating for more than 2 days Diarrhea for more than 5 days A fever of 100.4 F (38 C) or higher, or as directed by your healthcare provider Pain that gets worse Weight loss for no reason Continued lack of appetite Blood in your stool How to prevent abdominal pain Here are some tips to help prevent abdominal pain: Eat smaller amounts of food at each meal. Don't eat greasy, fried, or other high-fat foods. Don't eat foods that give you gas. Exercise regularly. Drink plenty of fluids. To help prevent GERD symptoms: Quit smoking. Reduce alcohol and foods that increase stomach acid. Don't use aspirin or xoee-pyo-fmekegg pain and fever medicines, if possible. This includes nonsteroidal anti-inflammatory drugs (NSAIDs). Lose excess weight. Finish eating at least 2 hours before you go to bed or lie down. Raise the head of your bed. 4790-3888 [employer]. [address] [place] [address]. All rights reserved. This information is not intended as a substitute for professional medical care. Always follow yourhealthcare professional's instructions. Additional Information VACCINATE! IT SAVES LIVES! Members of the community who have not yet received the COVID-19 vaccine and would like to receive it can visit one of [facility] vaccine clinics. There are many vaccine clinic locations within the [facility]. For locations and available times, please visit [email or web address]. It is important to note that some COVID mobile vaccine clinics are held outdoors and may be canceled in rainy orstormy conditions. To learn more about pediatric vaccinations (ages 5-11), we invite you to visit the [facility] webpage. [email or web address]/[email or web address]-[email or web address]-[email or web address] [email or web address] learn more about the COVID-19 vaccine, we invite you to visit the [place] website for a list of frequently asked questions. [email or web address]-[email or web address] _[email or web address].pdf [facility] Patient Portal Access Instructions: Stay connected with your healthcare team and access your personal medical information anytime with the [facility] Patient Portal. If you would like a full copy of your medical records please contact the [facility] Medical Records Department Tuesday through Tuesday between 8a.m. and 4:30p.m. Please follow the directions below to access the portal: 1.Access the email account you provided upon registration to the [facility].2.Look for an invitation email from [facility].3.Open the email and access the invitation link: Accept Invitation to Chris[employer]libri4.Fill in the required gibbons to create your account. Sign into [email or web address].Holidog with your username and password that you created in the above steps to stay up to date. You can then view a summary of results, a summary of your visits, and the ability to download your summaries to your computer or send the information securely to a physician. Remember that your healthcare information is confidential, so carefully consider who you will allow to register on the [employer] Patient Portal for access to your information. You can also access the [employer] Patient Portal on the [employer]. Simply click on Health Records under [employer] and then click on the [employer] logo. HOW TO SAFELY DISPOSE OF PRESCRIPTION MEDICATIONS Please use one of the following methods to safely dispose of your unused medications. 1.Use a drug disposal kit: the drug disposal pouch allows you to safely discard your old and unuseddrugs. Ask your nurse to give you one when you are discharged.2.Visit a local take-back location: Many local pharmacies and police departments have programs that collect old and unwanted prescriptiondrugs. Call your local pharmacy or go to http://Mitrionics.Jaman/3H6Es4o to find one close to you.3.Make use of household items: Use cat litter or old coffee grounds to dispose medications if other options arenot available. Mix your drugs with these household products, seal them in an airtight container andthrow it into the garbage. Call [facility]: [phone] to be sure your drugs can be disposed of in this way. Some medicines may require a different approach.4.Never flush your medications down the toilet. IF YOU HAVE BEEN PRESCRIBED AN OPIOIDS FOR PAIN If you have been prescribed an opioid (such as hydrocodone, oxycodone or morphine), it is critical to understand the possible side effects and risks of opioid pain medications. Even when taken as directed, opioids can have several side effects including: Tolerance, meaning you might need to take more of a medication for the same pain relief. Nausea, vomiting and/or constipation. Sleepiness, dizziness, dry mouth, confusion, depression or itching. Physical dependence, meaning you have withdrawal symptoms when a medication is stopped ? this can develop within a few days. KNOW YOUR RESPONSIBILITIES It is important to know exactly how much and how often to take the opioid pain medications you are prescribed. Never take opioids in higher amounts or more often than prescribed. Do not combine opioids with alcohol or other drugs that cause drowsiness, such as benzodiazepines, also known as benzos,including diazepam and alprazolam, muscle relaxants or sleep aids. Never sell or share prescriptionopioids. This is illegal. Store opioids in a secure place and out of reach of others (including children, family, friends and visitors). The last page(s) of this document has been signed and retained as a CHART COPY Signatures Patient Education Materials Abdominal Pain Medication Leaflets My discharge plan and instructions have been reviewed and explained to me and I,DAVID GARCIA understand my current condition and have read and understand these discharge instructions. I have received a written copy of the plan/instructions. If I have questions, I am aware that I should contact my doctor. Patient/Content Writer Signature: Date/Time: Relationship to Patient: Witness Name/Signature: Date/Time: [place]10-17-2022 Note ORIGINAL EXAMINATION: CT OF THE ABDOMEN AND PELVIS WITH CONTRAST 08/16/2022 5:39 am TECHNIQUE: CT of the abdomen and pelvis was performed with the administration of intravenous contrast. Multiplanar reformatted images are provided for review. Automated exposure control, iterative reconstruction, and/or weight based adjustment of the mA/kV was utilized to reduce the radiation dose to as low as reasonably achievable. COMPARISON: None. HISTORY: ORDERING SYSTEM PROVIDED HISTORY: Reason for Exam: pain FINDINGS: Fatty infiltration of the liver. Cholelithiasis without evidence of acute cholecystitis. Spleen, adrenal glands, pancreas demonstrate no acute abnormalities. Kidneys enhance symmetrically. Small bowel colon are in course and caliber. No evidence of an acute obstructive or inflammatory process is identified. Aorta is normal in caliber. No lymphadenopathy. No intra-abdominal free air or free fluid. Lung bases are clear. Visualized osseous structures are intact visualized osseous structures are intact. IMPRESSION: Fatty infiltration of the liver. Cholelithiasis without evidence of acute cholecystitis. No additional acute findings. Interpreted by: Matt Jules MD Preliminary Report By: Matt Jules MD Electronically signed By Matt Jules MD Dictated Date: 08/16/2022 6:14:30 AM Prelim Date: 08/16/2022 6:28:53 AM Sign Date: 08/16/2022 6:28:53 AM Ordering Provider: T[facility]10-17-2022 Note ORIGINAL EXAMINATION: CT OF THE ABDOMEN AND PELVIS WITH CONTRAST 08/16/2022 5:39 am TECHNIQUE: CT of the abdomen and pelvis was performed with the administration of intravenous contrast. Multiplanar reformatted images are provided for review. Automated exposure control, iterative reconstruction, and/or weight based adjustment of the mA/kV was utilized to reduce the radiation dose to as low as reasonably achievable. COMPARISON: None. HISTORY: ORDERING SYSTEM PROVIDED HISTORY: Reason for Exam: pain FINDINGS: Fatty infiltration of the liver. Cholelithiasis without evidence of acute cholecystitis. Spleen, adrenal glands, pancreas demonstrate no acute abnormalities. Kidneys enhance symmetrically. Small bowel colon are in course and caliber. No evidence of an acute obstructive or inflammatory process is identified. Aorta is normal in caliber. No lymphadenopathy. No intra-abdominal free air or free fluid. Lung bases are clear. Visualized osseous structures are intact visualized osseous structures are intact. IMPRESSION: Fatty infiltration of the liver. Cholelithiasis without evidence of acute cholecystitis. No additional acute findings. Interpreted by: Matt Jules MD Preliminary Report By: Matt Jules MD Electronically signed By Matt Jules MD Dictated Date: 08/16/2022 6:14:30 AM Prelim Date: 08/16/2022 6:28:53 AM Sign Date: 08/16/2022 6:28:53 AM [facility] No data available for this section [place] Evaluation + Plan note Future Appointments Appointment Date:09/13/2023 09:30:00 AM Scheduled Provider:IVAN BROWN DO Location:[facility] Appointment Type:PC Wellness Medicare Future Scheduled Tests Laboratory* [facility] Panel 05/31/23 [place] Evaluation note* Diagnosis Bullous keratopathy, bilateral- Primary Other hereditary corneal dystrophies, bilateral 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 Anterior dislocation of lens Pseudophakia Lens replaced by other means Monocular esotropia, left eye Monocular esotropia [facility] Diagnosis Precordial pain Precordial pain- Primary [facility]* Diagnosis Precordial pain documented in this encounter [facility] note* Diagnosis Onset Date Resolution Status Admit Date Atrial fibrillation acute Augus t 2024 10:19am [facility] Work Phone: Hospital Discharge instructions No data available for this section [place] Progress note No data available for this section [place] Reason for referral (narrative)No reason for referral [facility] Work Phone: Rezxlf for visit Narrative* Diagnostic Procedure Only (Routine) - Closed Specialty Diagnoses / Procedures Referred By Contac t Referred To Contact Cardiology / CARDIOLOGY Diagnoses Precordial pain order in scan doc Procedures CV STRS TST XERS&/OR RX CONT ECG TRCG ONLY STRESS TEST Tigist Lopez MD [address] [place] [address] Phone: tel: fax: [facility] Cardiology [address] [place] [address] Phone: tel: fax: Referral ID Status Reason Start Date Expiration Date Visits Re quested Visits Authorized [id number] Closed 03/29/2025 10/30/2025 2 1 [facility] note* SIMRAN Mendosa: PERFORM Event Display: Patient Summary Documents Authored Date: [id number] [place] Summary Purpose Family History Relationship Condition Age at Onset Recorded Date/T yasir father Diabetes mellitus Unknown mother Disorder of thyroid Unknown No Family History Records Found Advance Directives No Advanced Directives Records FoundNo Advanced Directives Records FoundNo Advanced Directives Records FoundNo Advanced Directives Records FoundNo Advanced Directives Records Found Chief Complaint and Reason for Visit Chief Complaint Admit Date ABN HOLTER (FEBRUARY) May 31, 2025 10: 19am Reason for Visit Admit Date Atrial fibrillation May 31, 2025 10: 19am Additional Source Comments Care Team (unrecognized sect ion and content) Care Team Personnel Name: IVAN BROWN DO Position: P4 Physician - Primary Care Member Role: Primary Care Physician Address: Address: [address] [place] [address] Care Team Related Persons Name: PLEASE, ASK Care Team Personnel Name: IVAN BROWN DO Position: P4 Physician - Primary Care Member Role: Primary Care Physician Address: Address: [address] [place] [address] Care Team Related Persons Name: PLEASE, ASK Care Team Personnel Name: IVAN BROWN DO Position: P4 Physician - Primary Care Member Role: Primary Care Physician Address: Address: [address] [place] [address] Care Team Related Persons Name: KAMAR GARCIA Patient Care team informatio n (unrecognized section and content) Team Status: Active Member Role/Relationship Status Dates Rosie Clark NP-Yi Primary Care Provider Active Team Status: Inactive Member Role/Relationship Status Dates Rosie February RAJINDER-C Primary Care Provider Active S tart: May 31, 2025 End: May 31, 2025 FRANCISCA Franco Referring Provider Active Star t: May 31, 2025 End: May 31, 2025 Dr. Donis Vinson MD Attending Provider Active S tart: May 31, 2025 End: May 31, 2025 (unrecognized sect ion and content) No Status Records FoundNo Status Records FoundNo Status Records FoundNo Status Records FoundNo Status Records Found INFORMATION SOURCE (unrecogn ized section and content) DATE CREATED AUTHOR 06/08/2023 [facility] ([place]) DATE CREATED AUTHOR AUTHOR'S ORGANIZ ATION 07/14/2024 [facility] DATE CREATED AUTHOR AUTHOR'S ORGANIZ ATION 01/27/2025 [facility] DATE CREATED AUTHOR AUTHOR'S ORGANIZ ATION 05/19/2025 [facility] DATE CREATED AUTHOR AUTHOR'S ORGANIZ ATION 06/05/2025 [facility] Source Comments (unrecognize d section and content) In the event this informatio n is protected by the Federal Confidentiality of Alcohol and Drug Abuse Patient Records regulations: The Federal rules restrict any use of the information to criminally investigate or prosecute any alcohol or drug abuse patient.[facility] the event this information is protected by the Federal Confidentiality of Alcohol and Drug Abuse Patient Records regulations: The Federal rules restrict any use of the information to criminally investigate or prosecute any alcohol or drug abuse patient.[facility] the event this information is protected by the Federal Confidentiality of Alcohol and Drug Abuse Patient Records regulations: The Federal rules restrict any use of the information to criminally investigate or prosecute any alcohol or drug abuse patient.[facility] the event this information is protected by the Federal Confidentiality of Alcohol and Drug Abuse Patient Records regulations: The Federal rules restrict any use of the information to criminally investigate or prosecute any alcohol or drug abuse patient.[facility] the event this information is protected by the Federal Confidentiality of Alcohol and Drug Abuse Patient Records regulations: The Federal rules restrict any use of the information to criminally investigate or prosecute any alcohol or drug abuse patient.[facility] Reason for Visit (unrecogniz ed section and content) Reason Comments Bullous Keratopathy Follow Up Goals (unrecognized section and content) Goals may be documented in a n alternate section FOR RECORDS PERTAINING TO PATIENTS WHO ARE OR HAVE BEEN ENROLLED IN A CHEMICAL DEPENDENCY/SUBSTANCEABUSE PROGRAM, SOME INFORMATION MAY BE OMITTED. This clinical summary was aggregated from multiple sources. Caution should be exercised in using it in the provision of clinical care. This summary normalizes information from multiple sources, and as a consequence, information in this document may materially change the coding, format and clinical context of patient data. In addition, data may be omitted in some cases. CLINICAL DECISIONS SHOULD BE BASED ON THE PRIMARY CLINICAL RECORDS. [employer] provides no warranty or guarantee of the accuracy or completeness of information in this document.
== END | disposition home or self-care (01) ==
LOC: PSN 07:25
PROVIDERS: PCP Nurse Practitioner Family; Referring Provider Internal Medicine Cardiovascular Disease; Visit Provider Internal Medicine Cardiovascular Disease
DX: I48.91 Unspecified atrial fibrillation (principal)
CPT/HCPCS: 93225; 93226

== ENCOUNTER → 2025-06-19 | Outpatient (CLI) | payer MEDICARE, SELFPAY ==
--- NOTE | 2025-06-19 07:48 | ECHOD_ITS ---
Reason For Study Reason For Study: AFib/Flutter Procedure This was a 2D Doppler, Color Flow transthoracic echocardiogram. Exam performed in department. Left Ventricle Normal LV size. The left ventricular ejection fraction is 60 %. No regional wall motion abnormalities noted. Right Ventricle Normal RV size. Normal systolic function. Atria The left atrium is moderately enlarged. The right atrium is mildly enlarged. Mitral Valve Moderate focal mitral valve calcification of the anterior leaflet. Mild (1+) eccentric mitral valve insufficiency. Tricuspid Valve Normal tricuspid valve. Mild (1+) tricuspid valve insufficiency. Pulmonary artery systolic pressure is 36 mmHg. Aortic Valve Trisinus/trileaflet aortic valve. Mild (1+) eccentric aortic valve insufficiency. Pulmonic Valve Normal pulmonic valve. Great Vessels Normal aortic root. The pulmonary artery is normal size. Inferior vena cava collapse with respiration. Pericardium/Pleural No pericardial effusion. MMode/2D Measurements & Calculations LVIDd: 5.2 cm IVSd: 1.1 cm Ao root diam: 3.9 cm LVIDs: 3.3 cm LVPWd: 1.4 cm RVDd: 4.5 cm FS: 35.7 % LAV(MOD-bp): 80.3 ml LVAd ap4: 33.7 cm2 SV(MOD-sp4): 64.1 ml LAV(MOD-bp) Indexed: 38.0 ml/m2 LVLd ap4: 8.7 cm SI(MOD-sp4): 30.3 ml/m2 LAV(MOD-sp2): 70.1 ml EDV(MOD-sp4): 106.2 ml LAV(MOD-sp4): 87.1 ml EDV(sp4-el): 110.8 ml LVAs ap4: 18.6 cm2 LVLs ap4: 7.2 cm ESV(MOD-sp4): 42.1 ml ESV(sp4-el): 40.7 ml EF(MOD-sp4): 60.3 % EF(sp4-el): 63.3 % SV(sp4-el): 70.2 ml LA A4 area: 25.9 cm2 LA dimension(2D): 5.4 cm RA A4 area: 23.9 cm2 TAPSE: 2.2 cm Time Measurements MV dec time: 0.20 sec Doppler Measurements & Calculations MV E max janusz: 80.3 cm/sec Lat Peak E' Janusz: 7.7 cm/sec Med Peak E' Janusz: 9.4 cm/sec MV A max janusz: 56.1 cm/sec E/E' lat: 10.4 E/E' med: 8.6 MV E/A: 1.4 MV V2 max: 97.1 cm/sec MV P1/2t max janusz: 99.5 cm/sec Ao V2 max: 135.2 cm/sec MV max P.8 mmHg MV P1/2t: 82.2 msec Ao max P.3 mmHg MV V2 mean: 44.8 cm/sec Ao V2 mean: 94.5 cm/sec MV mean P.0 mmHg MV dec slope: 354.5 cm/sec2 Ao mean P.1 mmHg MV V2 VTI: 36.4 cm MVA(P1/2t): 2.7 cm2 Ao V2 VTI: 36.7 cm AV (velocity ratio): 0.64 AI max janusz: 586.8 cm/sec LV V1 max: 85.2 cm/sec MR max janusz: 495.2 cm/sec AI max P.9 mmHg LV V1 max P.9 mmHg MR max P.1 mmHg LV V1 mean P.6 mmHg AI dec slope: 171.4 cm/sec2 LV V1 mean: 59.1 cm/sec AI P1/2t: 1003 msec LV V1 VTI: 23.4 cm PA V2 max: 69.6 cm/sec TR max janusz: 288.3 cm/sec TR max P.2 mmHg ECHO/Echo Complete Interpretation Summary Normal LV size. The left ventricular ejection fraction is 60 %. The left atrium is moderately enlarged. Mild (1+) eccentric mitral valve insufficiency. Pulmonary artery systolic pressure is 36 mmHg. Mild (1+) eccentric aortic valve insufficiency. Ordering Physician: Donis Vinson Referring Physician: Donis Vinson Performed By: Marshal Qureshi RCS
== END | disposition home or self-care (01) ==
LOC: CVS 07:46
PROVIDERS: PCP Nurse Practitioner Family; Referring Provider Internal Medicine Cardiovascular Disease; Visit Provider Internal Medicine Cardiovascular Disease
DX: R94.31 Abnormal electrocardiogram [ECG] [EKG] (principal); I48.91 Unspecified atrial fibrillation
CPT/HCPCS: 93306